=== PATIENT | female | born 1970 | race African-American/Black ===

== ENCOUNTER 2019-10-19 09:00 | Outpatient (CLI) | payer BC, SELFPAY ==
--- NOTE | ~2019-10-19 | MR_ITS ---
EXAMINATION: MR abdomen wo/w con DATE: 10/19/2019 10:06 INDICATION: Disease of pancreas. TECHNIQUE: Magnetic resonance imaging (MRI) of the abdomen was performed without and with 16 mL Multi Lexx intravenous contrast. Sequences included coronal T2-weighted FS FSE, coronal and axial FS FIEST A, axial T2-weighted FSE, coronal LAVA-flex, axial STIR FSE, axial DWI, axial dual-echo T1-weighted F SPGR, and axial LAVA. Postcontrast sequences included coronal LAVA-flex and a time course of axial LA VA. COMPARISON: CT abdomen and pelvis 04/06/2014, 05/27/2013 FINDINGS: There is moderate intrahepatic biliary duct dilatation. The common duct is dilated to 19 mm, worsened from 13 mm on 04/06/2014. There are changes of cholecystectomy. The pancreatic duct is mildly dilated to 5 mm, new from 04/06/2014. There is no pancreatic mass. The spleen, adrenal glands, and kidneys ar e normal. There are no dilated loops of bowel. There are no pathologically enlarged lymph nodes. Ther e is no free intraperitoneal fluid. IMPRESSION: 1. Worsened intrahepatic and extrahepatic biliary duct dilatation. Correlate with liver function test s to determine if this finding is clinically significant. 2. Mildly dilated pancreatic duct, most likely chronic pancreatitis. Reviewed, dictated and finalized at location A. IMPRESSION: 1. Worsened intrahepatic and extrahepatic biliary duct dilatation. Correlate wi th liver function tests to determine if this finding is clinically significant. 2. Mildly dilated pancreatic duct, most likely chronic pancreatitis.
[2019-10-19 09:37] LABS: Estimated Glomerular Filt Rate > 60
== END 2019-10-19 09:01 | disposition home or self-care (01) ==
PROVIDERS: Visit Provider Family Medicine
DX: K86.9 Disease of pancreas, unspecified (principal); K76.9 Liver disease, unspecified
CPT/HCPCS: 36415; 74183; A9577

== ENCOUNTER 2020-02-21 01:24 | Outpatient (CLI) | payer BC, SELFPAY ==
[2020-02-21 19:01] LABS: SARS-CoV-2 RNA PCR Negative
== END 2020-02-21 01:25 | disposition home or self-care (01) ==
LOC: ANHCOVIDDT 01:24
PROVIDERS: Visit Provider Internal Medicine Gastroenterology
DX: Z01.818 Encounter for other preprocedural examination (principal); Z11.59 Encounter for screening for other viral diseases
CPT/HCPCS: 87635; C9803; U0003

== ENCOUNTER 2020-02-23 03:42 | Day surgery (SDC) | payer BC, SELFPAY ==
[2020-02-15 14:01] VITALS: BMI 27.7
[2020-02-23 10:05] VITALS: BP 131/83; PULSE 78; RESP 18; TEMP 37; O2SAT 100; BMI 27.1
--- NOTE | 2020-02-23 10:09 | WPDANESEPPF ---
Anes - Initial Pre Proc Eval Procedure: Operation Date: 02/23/20 10:45 Proposed Procedures p Screening Colonoscopy - Quinten Mantilla MD Date/Time: 02/23/20 10:09 Surgeon: Quinten Mantilla MD Pre Op Diagnosis: neoplasm screen Patient Data Age: 49 Gender: F Height: 5 ft 9 in Weight: 83.5 kg Last Vital Signs Temp 37.0 C 02/23/20 10:05 Pulse 78 02/23/20 10:05 Resp 18 02/23/20 10:05 BP 131/83 02/23/20 10:05 Pulse Ox 100 02/23/20 10:05 Allergies Allergy/AdvReac Type Severity Reaction Status Date / Time cat dander Allergy Unknown Unknown Verified 02/23/20 10:01 pollen extracts Allergy Unknown Unknown Verified 02/23/20 10:01 NSAIDS (Non-Steroidal AdvReac Intermediate Unknown Verified 02/23/20 10:01 Anti-Inflamma Home Medications Medication Instructions Recorded Confirmed Type topiramate 50 mg tablet 50 mg PO BID #180 tablet 09/28/19 02/15/20 Rx butalbital 50 mg-acetaminophen 325 1 cap PO Q4H PRN #10 cap 10/10/19 02/15/20 Rx mg-caffeine 40 mg-codeine 30 mg cap rizatriptan 10 mg disintegrating 10 mg PO .COMPLEX PRN #30 tablet 10/25/19 02/15/20 Rx tablet syringe with needle 3 mL 25 gauge #5 each 11/20/19 Rx x 1 pregabalin 200 mg capsule 200 mg PO TID #90 cap 12/12/19 02/15/20 Rx duloxetine 60 mg capsule,delayed 60 mg PO DAILY 01/25/20 02/15/20 History release peg 3350-electrolytes 236 240 ml PO Q10M #4000 ml 02/13/20 Rx gram-22.74 gram-6.74 gram-5.86 gram solution buspirone 5 mg PO DAILY 02/15/20 02/15/20 History cyanocobalamin (vitamin B-12) 1,000 mcg IM MONTHLY 02/15/20 02/15/20 History eszopiclone 3 mg PO HS 02/15/20 02/15/20 History lorazepam 0.5 mg PO DAILY PRN 02/15/20 02/15/20 History sertraline 100 mg PO DAILY 02/15/20 02/15/20 History trazodone 50 mg PO HS PRN 02/15/20 02/15/20 History Patient hx anesthesia problems: none Family hx anesthesia problems: none PMFSH Past Medical History Medical History Anxiety Back pain Colon cancer screening Dilated bile duct Hiatal hernia Migraines Migraines Pancreatic lesion Plantar fasciitis Polyarthralgia Post herpetic neuralgia Primary insomnia Vaginal delivery x2 Surgical History Surgical History Gastric bypass status for obesity History of cholecystectomy History of gastric surgery Family History Family History Sibling Hypertension Father Family history of lung cancer Hypertension Mother Hypertension Family history of malignant melanoma Social History Social History Smoking status: Never smoker Second hand tobacco smoke exposure: No Alcohol intake: current Substance use: never Substance use type: does not use Additional occupation/education comments: Homemaker Gender identity (if verbalized by the patient): Female Spiritual care concerns: No Agree to blood products: Yes Anes - Eval Final PreProcedure Day of Procedure 02/23/20 10:09 Patient weight: overweight Heart: regular rate and rhythm Lungs: clear to auscultation Airway: Mallampati scale class II Neurological: alert and oriented Last oral intake: >/= 8 hours ASA classification: II Emergent: no Anesthetic plan: proceed Anesthesia type and monitoring: general GIVS and standard monitoring Informed Consent: The patient's anesthetic plan and its attendant risks and benefits were discussed with the patient/family/POA. Questions were solicited and answers provided to the satisfaction of the patient/family/POA.
[2020-02-23] MEDS: LACTATED RINGERS 1,000 ML 150 ML IV CONT (10:12)
--- NOTE | 2020-02-23 10:15 | SUR.PREOP ---
pt notified of approx 20 min delay in start time for procedure.
--- NOTE | 2020-02-23 11:25 | PM.HPGS ---
History of Present Illness History of Present Illness Consent: Risks, benefits, and alternatives have been discussed and questions answered. Patient agrees to proceed with procedure. Chief complaint: neoplasm screen Narrative: Shimon Mederos is a 49 year old female here for screening colonoscopy Review of Systems Constitutional: Constitutional: Denies headache(s) and Denies weakness Eyes: Eyes: Denies blurry vision ENT: Reports Normal hearing present, Denies headache(s) and Denies neck pain Cardiovascular: Cardiovascular: Denies chest pain and Denies dyspnea Respiratory: Respiratory: Denies dyspnea Gastrointestinal: Gastrointestinal: Reports no additional gastrointestinal complaints Genitourinary: Genitourinary: Denies dysuria Musculoskeletal: Musculoskeletal: Denies neck pain Integumentary/Breasts: Skin/Breast: Denies dry skin Neurologic: Reports Normal hearing present, Denies headache(s) and Denies weakness Psychiatric: Psychiatric: Denies anxiety Endocrine: Endocrine: Denies change in body appearance Hematologic/Lymphatic: Hematologic/Lymphatic: Denies easy bleeding Allergic/Immunologic: Allergic/Immunologic: Denies urticaria PMF Past Medical History Medical History Anxiety Back pain Colon cancer screening Dilated bile duct Hiatal hernia Migraines Migraines Pancreatic lesion Plantar fasciitis Polyarthralgia Post herpetic neuralgia Primary insomnia Vaginal delivery x2 Surgical History Surgical History Gastric bypass status for obesity History of cholecystectomy History of gastric surgery Family History Family History Sibling Hypertension Father Family history of lung cancer Hypertension Mother Hypertension Family history of malignant melanoma Social History Social History Smoking status: Never smoker Second hand tobacco smoke exposure: No Alcohol intake: current Substance use: never Substance use type: does not use Additional occupation/education comments: Homemaker Gender identity (if verbalized by the patient): Female Spiritual care concerns: No Agree to blood products: Yes Meds Home Medications and Allergies Home Medications Medication Instructions Recorded Confirmed Type topiramate 50 mg tablet 50 mg PO BID #180 tablet 09/28/19 02/15/20 Rx butalbital 50 mg-acetaminophen 325 1 cap PO Q4H PRN #10 cap 10/10/19 02/15/20 Rx mg-caffeine 40 mg-codeine 30 mg cap rizatriptan 10 mg disintegrating 10 mg PO .COMPLEX PRN #30 tablet 10/25/19 02/15/20 Rx tablet syringe with needle 3 mL 25 gauge #5 each 11/20/19 Rx x 1 pregabalin 200 mg capsule 200 mg PO TID #90 cap 12/12/19 02/15/20 Rx duloxetine 60 mg capsule,delayed 60 mg PO DAILY 01/25/20 02/15/20 History release peg 3350-electrolytes 236 240 ml PO Q10M #4000 ml 02/13/20 Rx gram-22.74 gram-6.74 gram-5.86 gram solution buspirone 5 mg PO DAILY 02/15/20 02/15/20 History cyanocobalamin (vitamin B-12) 1,000 mcg IM MONTHLY 02/15/20 02/15/20 History eszopiclone 3 mg PO HS 02/15/20 02/15/20 History lorazepam 0.5 mg PO DAILY PRN 02/15/20 02/15/20 History sertraline 100 mg PO DAILY 02/15/20 02/15/20 History trazodone 50 mg PO HS PRN 02/15/20 02/15/20 History Allergies Allergy/AdvReac Type Severity Reaction Status Date / Time cat dander Allergy Unknown Unknown Verified 02/23/20 10:01 pollen extracts Allergy Unknown Unknown Verified 02/23/20 10:01 NSAIDS (Non-Steroidal AdvReac Intermediate Unknown Verified 02/23/20 10:01 Anti-Inflamma Vital Signs Vital Signs - 24 hr 02/23/20 10:05 Temperature 98.6 F Pulse Rate 78 Respiratory Rate 18 Blood Pressure 131/83 Pulse Oximetry 100 Exam Const: General: comfortable and no acute distress HENMT: General nose
[2020-02-23 11:50] VITALS: BP 132/91; PULSE 66; RESP 16; O2SAT 99
[2020-02-23 12:00] VITALS: BP 136/90; PULSE 61; RESP 16; O2SAT 99
[2020-02-23 12:04] VITALS: BP 139/83; PULSE 63; RESP 16; O2SAT 100
== END 2020-02-23 12:14 | disposition home or self-care (01) ==
PROVIDERS: Visit Provider Internal Medicine Gastroenterology
PROC: 0DJD8ZZ Inspection of Lower Intestinal Tract, Via Natural or Artificial Opening Endoscopic (ICD-10-PCS; CPT 45378; principal; 2020-02-23 10:45)
DX: Z12.11 Encounter for screening for malignant neoplasm of colon (principal); D12.0 Benign neoplasm of cecum; K63.89 Other specified diseases of intestine; F41.9 Anxiety disorder, unspecified
CPT/HCPCS: 45380; 88305; J2001; J2704; J7120

== ENCOUNTER 2020-07-25 08:55 | Outpatient (CLI) | payer BC, SELFPAY ==
--- NOTE | ~2020-07-25 | MM_ITS ---
EXAMINATION: MM screening [facility] w rosy HISTORY: Screening mammogram TECHNIQUE: Craniocaudal and mediolateral oblique 3-D tomosynthesis images were obtained and synthetic 2-D images were generated. CAD analysis was submitted and interpreted. COMPARISON: 11/28/2015, 09/20/2014, 09/15/2013 bilateral digital screening mammogram examinations BREAST PARENCHYMAL COMPOSITION: The breasts are heterogeneously dense, which may obscure small masses . FINDINGS: There is no evidence of suspicious mass, calcification, or architectural distortion to sugg est malignancy in either breast. There has been no suspicious interval change. IMPRESSION: 1. No mammographic evidence of malignancy. 2. Recommend routine screening mammography in one year. BI-RADS Category 1: Negative Reviewed, dictated and finalized at location B. 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
== END 2020-07-25 08:56 | disposition home or self-care (01) ==
LOC: ANHIMG 08:56
PROVIDERS: Visit Provider Student in an Organized Health Care Education/Training Program
DX: Z12.31 Encounter for screening mammogram for malignant neoplasm of breast (principal)
CPT/HCPCS: 77063; 77067

== ENCOUNTER 2021-09-09 14:32 | Outpatient (CLI) | payer BC, SELFPAY ==
--- NOTE | ~2021-09-09 | XR_ITS ---
XR lumbar spine min 4V DATE: 09/09/2021 15:07 INDICATION: Radiculopathy. Left leg numbness. TECHNIQUE: AP, lateral, coned lateral lumbosacral and bilateral oblique views COMPARISON: None FINDINGS: No fracture or bone destruction. The included lower thoracic pedicles and lumbar pedicles are intact. No spondylosis or spondylolisthesis. The lumbar and lumbosacral interspaces are well preserved. The sacroiliac joints are intact. Status post cholecystectomy. IMPRESSION: No significant abnormality Status post cholecystectomy Reviewed, dictated and finalized at location B. ACER
== END 2021-09-09 14:33 | disposition home or self-care (01) ==
LOC: ANHIMG 14:41
PROVIDERS: PCP Family Medicine; Visit Provider Physician Assistant
DX: M54.10 Radiculopathy, site unspecified (principal); Z90.49 Acquired absence of other specified parts of digestive tract
CPT/HCPCS: 72110

== ENCOUNTER 2022-02-03 09:18 | Outpatient (CLI) | payer BC, SELFPAY ==
--- NOTE | ~2022-02-03 | MM_ITS ---
EXAMINATION: MM screening [facility] BI w rosy HISTORY: Screening TECHNIQUE: Craniocaudal and mediolateral oblique 3-D tomosynthesis images were obtained and synthetic 2-D images were generated. CAD analysis was submitted and interpreted. COMPARISON: Comparison to multiple prior studies sequentially, with oldest reviewed study dated 02/2014. BREAST PARENCHYMAL COMPOSITION: There are scattered areas of fibroglandular density. FINDINGS: There is no evidence of suspicious mass, calcification, or architectural distortion to sugg est malignancy in either breast. There has been no suspicious interval change. IMPRESSION: 1. No mammographic evidence of malignancy. 2. Recommend routine screening mammography in one year. BI-RADS Category 1: Negative Reviewed, dictated and finalized at location A.
== END 2022-02-03 09:19 | disposition home or self-care (01) ==
LOC: ANHIMG 09:20
PROVIDERS: PCP Family Medicine; Visit Provider Student in an Organized Health Care Education/Training Program
DX: Z12.31 Encounter for screening mammogram for malignant neoplasm of breast (principal)
CPT/HCPCS: 77063; 77067

== ENCOUNTER 2022-12-05 08:53 | Outpatient (CLI) | payer BC, SELFPAY ==
[2022-12-05 09:27] LABS: Basophils Percent Auto 0.9 % (0.2-1.2); Eosinophils Absolute Auto 0.1 K/mm3 (0-0.3); Eosinophils Percent Auto 2.2 % (0-4.4); Hematocrit 41.5 % (37.0-47.0); Hemoglobin 13.6 g/dL (12.0-15.0); Immature Granulocyte Absolute 0.01 K/mm3 (0.00-0.031); Immature Granulocyte Percent A 0.2 % (0-0.5); Lymphocytes Absolute Auto 2.11 K/mm3 (0.9-3.2); Lymphocytes Percent Auto 47.2 % (18.3-44.2); Mean Corpuscular HGB Conc 32.8 g/dl (32-36); Mean Corpuscular Hemoglobin 32.4 pg (26-34); Mean Corpuscular Volume 98.8 fl (80-100); Mean Platelet Volume 8.8 fl (7.4-10.4); Monocytes Absolute Auto 0.3 K/mm3 (0.1-0.6); Monocytes Percent Auto 6.7 % (2.6-8.5); Neutrophils Absolute Auto 1.9 K/mm3 (1.3-6.7); Neutrophils Percent Auto 42.8 % (45.5-73.1); Platelet Count Result 260 k/mm3 (150-375); Red Cell Distribution Width 12.1 % (11.5-14.5); White Blood Count 4.5 K/mm3 (4.5-10.0)
[2022-12-05 09:37] LABS: Alanine Aminotransferase 17 U/L (6-35); Albumin Level 3.9 g/dL (3.5-5.1); Alkaline Phosphatase 79 U/L (38-126); Anion Gap 2 mmol/L (8-16); Aspartate Amino Transferase 25 U/L (14-36); Bilirubin,Total 0.5 mg/dL (0.2-1.3); Blood Urea Nitrogen 16 mg/dL (7-17); Calcium 8.5 mg/dL (8.4-10.2); Carbon Dioxide 36 mmol/L (22-30); Chloride 101 mmol/L (98-107); Cholesterol 197 mg/dL (0-200); Estimated Glomerular Filt Rate > 60; Glucose 90 mg/dL (65-110); HDL Direct 79 mg/dL; Potassium 4.1 mmol/L (3.4-5.0); Sodium 139 mmol/L (137-145); Triglycerides 169 mg/dL (<150)
[2022-12-05 09:48] LABS: LDL Cholesterol Direct 80 mg/dL
[2022-12-05 10:35] LABS: Hemoglobin A1C 5.2 % (<5.7)
[2022-12-05 10:43] LABS: Folic Acid 8.1 ng/mL (2.76->20)
[2022-12-05 10:51] LABS: Vitamin D 25 Hydroxy 18.4 ng/mL
== END 2022-12-05 08:54 | disposition home or self-care (01) ==
LOC: ANHLAB 08:56
PROVIDERS: PCP Family Medicine; Visit Provider Nurse Practitioner Psychiatric/Mental Health
DX: R51.9 Headache, unspecified (principal); D51.9 Vitamin B12 deficiency anemia, unspecified; F51.01 Primary insomnia; F41.1 Generalized anxiety disorder; F33.1 Major depressive disorder, recurrent, moderate; Z79.899 Other long term (current) drug therapy
CPT/HCPCS: 36415; 80053; 80061; 82306; 82746; 83036; 84443; 85025

== ENCOUNTER 2023-04-19 09:17 | Outpatient (CLI) | payer BC, SELFPAY ==
[2023-04-19 10:21] LABS: Basophils Percent Auto 0.8 % (0.2-1.2); Eosinophils Absolute Auto 0.1 K/mm3 (0-0.3); Hematocrit 42.1 % (37.0-47.0); Hemoglobin 13.7 g/dL (12.0-15.0); Immature Granulocyte Absolute 0.01 K/mm3 (0.00-0.031); Immature Granulocyte Percent A 0.2 % (0-0.5); Lymphocytes Absolute Auto 2.02 K/mm3 (0.9-3.2); Lymphocytes Percent Auto 39.8 % (18.3-44.2); Mean Corpuscular HGB Conc 32.5 g/dl (32-36); Mean Corpuscular Hemoglobin 32.1 pg (26-34); Mean Corpuscular Volume 98.6 fl (80-100); Monocytes Absolute Auto 0.4 K/mm3 (0.1-0.6); Monocytes Percent Auto 7.9 % (2.6-8.5); Neutrophils Absolute Auto 2.5 K/mm3 (1.3-6.7); Neutrophils Percent Auto 49.3 % (45.5-73.1); Platelet Count Result 242 k/mm3 (150-375); Red Blood Count 4.27 M/mm3 (4.2-5.4); White Blood Count 5.1 K/mm3 (4.5-10.0)
[2023-04-19 10:43] LABS: Rheumatoid Factor < 12.0 IU/ML (<12)
[2023-04-19 11:30] LABS: Alanine Aminotransferase 23 U/L (6-35); Albumin Level 3.9 g/dL (3.5-5.1); Alkaline Phosphatase 103 U/L (38-126); Anion Gap 3 mmol/L (8-16); Aspartate Amino Transferase 28 U/L (14-36); Bilirubin,Total 0.6 mg/dL (0.2-1.3); Blood Urea Nitrogen 18 mg/dL (7-17); Calcium 8.5 mg/dL (8.4-10.2); Carbon Dioxide 32 mmol/L (22-30); Chloride 103 mmol/L (98-107); Estimated Glomerular Filt Rate > 60; Glucose 91 mg/dL (65-110); Potassium 4.2 mmol/L (3.4-5.0); Sodium 138 mmol/L (137-145)
[2023-04-19 15:33] LABS: Erythrocyte Sedimentation Rate 18 mm/hr (0-20)
[2023-04-21 22:11] LABS: Anti Cyclic Citrullinated Pept <16 Units (<20)
== END 2023-04-19 09:18 | disposition home or self-care (01) ==
LOC: ANHLAB 09:18
PROVIDERS: PCP Family Medicine; Visit Provider Physician Assistant Medical
DX: E78.2 Mixed hyperlipidemia (principal); M25.50 Pain in unspecified joint
CPT/HCPCS: 36415; 80053; 85025; 85652; 86038; 86200; 86430

== ENCOUNTER 2024-05-14 13:09 | Emergency (ER) | payer BC, SELFPAY ==
[2024-05-14 13:16] VITALS: BP 133/68; PULSE 65; RESP 14; TEMP 36.1; O2SAT 98
--- NOTE | 2024-05-14 15:26 | ED.BACK ---
HPI - Back Pain/Injury General Chief Complaint: Back Pain/Injury Stated Complaint: sciatica Time Seen by Provider: 05/14/24 15:22 Source: patient, RN notes reviewed and old records reviewed Mode of arrival: ambulatory Limitations: no limitations History of Present Illness HPI Narrative: This is a 53 year old female with history of chronic back pain with sciatica who presents for evaluation of exacerbation of left sciatica. She reports having exacerbation of her left sciatica for 1 week. She reports left buttock pain that radiates down to her ankle. She reports tingling feeling. She is taking tylenol without improvement. She denies urinary incontinence or bowel incontinence. She denies any new injury. Related Data Home Medications Medication Instructions Recorded Confirmed eszopiclone 3 mg tablet 3 mg PO HS 02/15/20 12/14/23 lorazepam 0.5 mg tablet 0.5 mg PO DAILY PRN Anxiety 02/15/20 12/14/23 sertraline 100 mg tablet 100 mg PO DAILY 02/15/20 12/14/23 buspirone 10 mg tablet 10 mg PO DAILY 12/26/20 12/14/23 trazodone 100 mg tablet 100 mg PO QHS PRN 12/26/20 12/14/23 Allergies Allergy/AdvReac Type Severity Reaction Status Date / Time cat dander Allergy Unknown Unknown Verified 05/14/24 15:29 pollen extracts Allergy Unknown Unknown Verified 05/14/24 15:29 NSAIDS (Non-Steroidal AdvReac Intermediate Unknown Verified 05/14/24 15:29 Anti-Inflamma Review of Systems Review of Systems: All systems reviewed & are unremarkable except as noted in HPI and below PMFSH Past Medical History Medical History Anxiety Back pain Colon cancer screening Dilated bile duct Hiatal hernia Migraines Migraines Pancreatic lesion Plantar fasciitis Polyarthralgia Post herpetic neuralgia Primary insomnia Vaginal delivery x2 Surgical History Surgical History History of cholecystectomy History of gastric surgery Family History Family History Sibling Hypertension Father Family history of lung cancer Hypertension Mother Hypertension Family history of malignant melanoma Social History Social History Smoking status: Never smoker Second hand tobacco smoke exposure: No Alcohol intake: current Alcohol use details: Social Substance use: never Substance use type: does not use Living arrangements: with family Occupation/Education: other Additional occupation/education comments: Homemaker Gender identity (if verbalized by the patient): Female Spiritual care concerns: No Agree to blood products: Yes Exam Const: General: no acute distress and alert Nutritional Appearance: well nourished Orientation/consciousness: patient oriented x3 Limitations: no limitations HENMT: Head: normal to inspection Eyes: EOM: EOMs intact bilaterally Skin: General skin exam: normal color Neuro: General: patient oriented x3, moves all extremities and CN's II-XI intact bilaterally Gait exam (Neuro): Normal gait present Extrem: General: normal to inspection Psych: Mental Status: mental status grossly normal Affect: normal affect Attitude: cooperative Course Reevaluation(s) Reevaluation #1: I Discussed with patient that symptoms do sound consistent with sciatica. No injury so no imaging at this time. I discussed treatment and discharge plan. Date: 05/14/24 Time: 15:34 Vital Signs Vital signs: Vital Signs Temperature 97 F L 05/14/24 13:16 Pulse Rate 65 05/14/24 13:16 Respiratory Rate 14 05/14/24 13:16 Blood Pressure 133/68 05/14/24 13:16 Pulse Oximetry 98 05/14/24 13:16 Temperature 97 F L 05/14/24 13:16 Pulse Rate 78 05/14/24 17:34 Respiratory Rate 16 05/14/24 17:34 Blood Pressure 128/84 05/14/24 17:34 Pulse Oximetry 98 05/14/24 17:34 Discharge
[2024-05-14] MEDS: methylPREDNISolone SOD SUCC 125 MG VIAL IM (15:30)
[2024-05-14] MEDS: oxyCODONE/ACETAMINOPHEN (*CRX) 5-325 MG TABLET 1 TABLET PO (15:30)
[2024-05-14] MEDS: ONDANSETRON HCL ODT 4 MG TABLET PO (15:30)
[2024-05-14 17:34] VITALS: BP 128/84; PULSE 78; RESP 16; O2SAT 98
== END 2024-05-14 16:05 | disposition home or self-care (01) ==
PROVIDERS: Emergency Provider General Practice; PCP Family Medicine
DX: M54.32 Sciatica, left side (principal); F41.9 Anxiety disorder, unspecified
CPT/HCPCS: 96372; 99283; A9270; J2919

== ENCOUNTER 2024-06-01 14:01 | Outpatient (CLI) | payer BC, SELFPAY ==
--- NOTE | ~2024-06-01 | XR_ITS ---
3 VIEWS LUMBAR SPINE Ordering provider: Allison Mae PA-C History: . M54.50 - Low back pain, unspecified . Comparison: September 09, 2021 FINDINGS: VERTEBRAL BODIES: No visible fracture or subluxation. Degenerative changes of the spine. DISK SPACES: Normal. Multilevel Facet Joint Disease. SOFT TISSUES: Normal. Fecal material seen in the right and left suggestive of constipation. IMPRESSION: No acute osseous abnormality lumbar spine. Reviewed, dictated and finalized at location A.
== END 2024-06-01 14:02 | disposition home or self-care (01) ==
PROVIDERS: PCP Family Medicine; Visit Provider Student in an Organized Health Care Education/Training Program
DX: M54.50 Low back pain, unspecified (principal)
CPT/HCPCS: 72100

== ENCOUNTER 2024-07-31 12:30 | Outpatient (RCR) | payer BC, SELFPAY ==
--- NOTE | 2024-06-26 16:22 | OPREHPOC ---
Outpatient Therapy Plan of Care This is a Multidisciplinary Plan of Care that may contain components documented by all disciplines (PT, OT, and ST.) PT Problem 1 PT Problem #1 Knowledge Deficit PT Goal 1 Goal / Goal Update *indep with HEP * correct body mechanics with lifting from the floor Target Visit 8 PT Problem 2 PT Problem #2 Pain PT Goal 1 Goal / Goal Update 1* pt report pain rating at worst of 7/10 2* radicular pain into L LE to knee at worst 3* Oswestry self rating of 42% limitation in activity level 4* pt report with sleeping, awaken 1x/night due to pain Target Visit 8 PT Problem 3 PT Problem #3 Impaired Flexibility PT Goal 1 Goal / Goal Update increase flexibility of L hip, to improve position and decrease imbalance of hip 1* supine SLR 60' 2* supine piriformis stretch to midline of body 3* prone knee flexion 120'/ anterior hip-quad length Target Visit 8 PT Problem 4 PT Problem #4 Impaired Strength PT Goal 1 Goal / Goal Update 1* improve trunk and hip stability to stabilize sacrum and spine: pt perform 20 reps of mat and standing exercises with good stability Target Visit 8
--- NOTE | 2024-06-26 16:22 | PTOPEVAL1 ---
Assessment and note entered by Marina Masters, PT Evaluation Information Assessment Status Evaluation ICD-10 Condition Codes (PT) Pain in low back M54.50,M54.16 Onset May 2024 Subjective Information chronic issues with back pain, increased and went to ER in May; this time back pain is more than she has had in the past; had predisone- completed and not really help; currently taking tramadol 2x/day; xray: lumbar degenerative changes; have had PT in the past at another facility- helped some; have had shots in her back in past- helped about 1 week. 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; Now- not able to walk the dogs and have to take breaks with activity due to pain Reported Pain Level Pain Score Self Report Additional Pain Score Comments pain range in the past week 5-10/10; constant dull pain L low back; radicular intermittent to toes tingle 3x in past week; constant to L knee increase pain: bending forward, lie on L side, twist back; walking 10 minutes decrease pain: sit in reclined position with legs elevated and pillow behind back; not using any heat or ice over back - instruct on PRN use; with sleeping, awaken 2x/night due to pain, does take sleeping meds Assessment PT Clinical Summary Shimon has the diagnosis of radicular lumbar pain. Radicular pain is into L LE to knee constantly and intermittent into foot. Her history includes chronic back pain with back injections in the past Self assessment Oswestry rating of 54% limitation in activity level. 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 Lumbar xray report states degenerative changes of spine. She has an appointment with pain management in August. With the evaluation: L LE is decreased flexibility over hamstring, piriformis and anterior hip/quad due to back pain; decreased strength of trunk and hips; standing bilateral ankle PF increases L lateral knee pain; pain is eased with pressure over R sacrum in prone and prone on elbows. Skilled PT services are indicated for modalities to decrease pain; therapeutic exercises to increase L hip flexibility and strength with education for home exercises, body mechanics and pain control. Plan of Care Interventions Electrical Stimulation,Hot Pack/Cold Pack,Manual Therapy,Mechanical Traction,Neuro Re-education, Patient Education,Therapeutic Activities, Therapeutic Exercise,Ultrasound,Other Other Interventions taping PT Services Indicated Yes Treatment Frequency and 1-2x/wk for 8 visits Duration These treatments will address the objective and functional deficits as defined above. The patient will be advanced safely and appropriately in order for the patient to progress towards his/her prior level of function. Additional exercises will be introduced and as well as a comprehensive home exercise program upon discharge, if needed, ?to ensure carryover of functional gains achieved in the clinic. This treatment plan has been reviewed and agreement upon by the patient.
--- NOTE | 2024-07-31 13:23 | OPREHPOC ---
Outpatient Therapy Plan of Care This is a Multidisciplinary Plan of Care that may contain components documented by all disciplines (PT, OT, and ST.) PT Problem 1 PT Problem #1 Knowledge Deficit PT Goal 1 Goal / Goal Update *indep with HEP * correct body mechanics with lifting from the floor 07-31-24 progress goals met continue towards goals to progress education Target Visit 14 PT Problem 2 PT Problem #2 Pain PT Goal 1 Goal / Goal Update 1* pt report pain rating at worst of 7/10 2* radicular pain into L LE to knee at worst 3* Oswestry self rating of 42% limitation in activity level 4* pt report with sleeping, awaken 1x/night due to pain 07-31-24 progress all goals met NEW GOALS: 1* pain rating of 4/10 at worst 2* radicular pain to knee at worst 3* self assessment Oswestry rating of 30% limitation in activity level Target Visit 14 PT Problem 3 PT Problem #3 Impaired Flexibility PT Goal 1 Goal / Goal Update increase flexibility of L hip, to improve position and decrease imbalance of hip 1* supine SLR 60' 2* supine piriformis stretch to midline of body 3* prone knee flexion 120'/ anterior hip-quad length 07-31-24 progress goals not met; improved with #1 to 55' and #3 to 115' continue towards goals Target Visit 14 PT Problem 4 PT Problem #4 Impaired Strength PT Goal 1 Goal / Goal Update 1* improve trunk and hip stability to stabilize sacrum and spine: pt perform 20 reps of mat and standing exercises with good stability 07-31-24 progress goal partially met continue towards goal Target Visit 14
--- NOTE | 2024-07-31 13:23 | PTOPPROG ---
Assessment and note entered by Marina Masters, PT Assessment Status Progress ICD-10 Condition Codes (PT) Pain in low back M54.50,Radiculopathy, lumbar region M54.16 Onset May 2024 Subjective Information have improved since coming for therapy, pain is less during the day, but continues to have pain at end of day; have been doing the exercises at home; to have MRI Aug 14; have pain management appt at end of Aug; Assessment PT Clinical Summary Shimon has received 6 PT sessions. Compared to the initial evaluation: pain from 5- 10/10 to 2-7/10; radicular pain L LE: constant to knee and intermittent to foot and now-- intermittent to knee daily and into foot 1x/wk; self assessment Oswestry rating 54 to 40% limitation in activity level; reported sleeping from awaken 2x to 1x/night due to pain; increase flexibility of L hamstring and anterior hip/quad length; increase strength of trunk and hips; improved awareness of posture and pain management techniques; education for HEP. The goals were partially met. Continue treatment. Plan of Care Interventions Electrical Stimulation,Hot Pack/Cold Pack,Manual Therapy,Mechanical Traction,Neuro Re-education, Patient/Caregiver Education,Therapeutic Activities ,Therapeutic Exercise,Ultrasound,Other Other Interventions taping PT Services Indicated Yes Treatment Frequency and 1-2x/wk for 8 visits Duration These treatments will address the objective and functional deficits as defined above. The patient will be advanced safely and appropriately in order for the patient to progress towards his/her prior level of function. Additional exercises will be introduced and as well as a comprehensive home exercise program upon discharge, if needed, ?to ensure carryover of functional gains achieved in the clinic. This treatment plan has been reviewed and agreement upon by the patient.
--- NOTE | 2024-08-07 13:37 | PCPTNOTE ---
Pt canceled today due to family .
--- NOTE | 2024-08-11 10:53 | PCPTNOTE ---
No call no show, reason unknown. AKKam
--- NOTE | 2024-08-11 11:00 | PCPTNOTE ---
Called and spoke with pt she is cancelling remaining appt at this time. [place] is out of the country due to a in the family. She is to call should she need our services. GUSTAVO
--- NOTE | 2024-08-17 11:07 | PTOPDC ---
Assessment and note entered by Marina Masters, PT Assessment Status Discharge - Pt Not Present ICD-10 Condition Codes (PT) Pain in low back M54.50,Radiculopathy, lumbar region M54.16 Onset May 2024 Subjective Information pt called August 11 and canceled all of the PT appointments due to going out of the country due to a . Assessment PT Clinical Summary Shimon has received 6 PT sessions, then called and canceled due to going out of the country. Refer to progress report dated on the last session 07-31-24, for her status. Discharge PT. The goals were not addressed. Plan of Care PT Services Indicated No
== END 2024-08-17 17:50 | disposition home or self-care (01) ==
LOC: ANHPT 12:30
PROVIDERS: PCP Family Medicine; Visit Provider Student in an Organized Health Care Education/Training Program
DX: M54.10 Radiculopathy, site unspecified (principal); M47.817 Spondylosis without myelopathy or radiculopathy, lumbosacral region; R29.898 Other symptoms and signs involving the musculoskeletal system; M54.50 Low back pain, unspecified
CPT/HCPCS: 97012; 97110; 97140; 97161; 97530

== ENCOUNTER 2024-09-14 08:17 | Outpatient (CLI) | payer BC, SELFPAY ==
--- NOTE | ~2024-09-14 | MR_ITS ---
EXAMINATION: MR lumbar spine wo con DATE: 09/14/2024 08:51 INDICATION: Low back pain TECHNIQUE: Magnetic resonance imaging (MRI) of the lumbar spine was performed without intravenous con trast. Sequences included sagittal T2-weighted FSE, sagittal T2-weighted FS FSE, sagittal T1-weighted FSE, and axial T2-weighted FSE. COMPARISON: None FINDINGS: Alignment is normal. Vertebral body heights are normal. Normal bone marrow signal. Mild disc desiccat ion and mild disc height loss at L3-L4. Remaining discs are normal. The conus medullaris terminates at L2. There is normal signal in the caudal spinal cord. Paravertebral soft tissues are unremarkable. The following disc levels are specifically discussed: T12-L1: The disc does not extend beyond the endplate margin. There is mild bilateral facet joint oste oarthritis. There is no neural foraminal stenosis. There is no central canal stenosis. L1-L2: The disc does not extend beyond the endplate margin. There is severe bilateral facet joint ost eoarthritis. There is minimal left and mild right neural foraminal stenosis. There is no central cathleen l stenosis. L2-L3: The disc does not extend beyond the endplate margin. There is moderate bilateral facet joint o steoarthritis. There is minimal bilateral neural foraminal stenosis. There is no central canal stenos is. L3-L4: Disc is bulging. There is mild left and moderate right facet joint osteoarthritis. There is mi ld bilateral neural foraminal stenosis. There is mild central canal stenosis. L4-L5: Disc is mildly bulging. There is moderate bilateral facet joint osteoarthritis. There is mild right and minimal left neural foraminal stenosis. There is no central canal stenosis. L5-S1: The disc does not extend beyond the endplate margin. There is moderate left and severe right f acet joint osteoarthritis. There is minimal right neural foraminal stenosis. There is no central cathleen l stenosis. IMPRESSION: 1. Mild lumbar spondylosis. Reviewed, dictated and finalized at location A. [employer] IMPRESSION: 1. Mild lumbar spondylosis.
== END 2024-09-14 08:18 | disposition home or self-care (01) ==
PROVIDERS: PCP Family Medicine; Visit Provider Family Medicine
DX: M47.896 Other spondylosis, lumbar region (principal)
CPT/HCPCS: 72148

== ENCOUNTER 2024-10-06 12:04 | Outpatient (CLI) | payer BC, SELFPAY | END 2024-10-06 12:05 | disposition home or self-care (01) | PROVIDERS: PCP Family Medicine; Visit Provider Anesthesiology Pain Medicine | DX: M46.1 Sacroiliitis, not elsewhere classified (principal); M25.552 Pain in left hip; M47.817 Spondylosis without myelopathy or radiculopathy, lumbosacral region; M54.50 Low back pain, unspecified | CPT/HCPCS: 72114; 72202; 73521 ==

== ENCOUNTER 2024-12-04 14:27 | Outpatient (CLI) | payer BC, SELFPAY ==
--- NOTE | ~2024-12-04 | XR_ITS ---
EXAMINATION: XR fl inj hip LT for MR/CT DATE: 12/04/2024 15:36 INDICATION: Left hip pain TECHNIQUE: A time-out was performed to verify the patient's name, date of , and procedure to b e performed. The procedure including the risks and benefits was discussed with the patient. Risks dis cussed included bleeding, nontargeted injection and infection. The patient understood the risks and agreed to proceed. The skin overlying the left hip joint was prepped and draped in usual sterile fashion. Anesthetic wa s administered with 1% lidocaine subcutaneously. A 22 G needle was advanced under fluoroscopic guidance into the joint. Injection of [0.5 mL of dilute Omnipaque 240 was performed to verify intra-articular position of the needle. Intra-articular needle position was confirmed.] Subsequently, injectate consisting of 10 mL of 1:200 0.1 mmol/kg Multihance, 1:4 1% lidocaine, and 1: 4 Omnipaque 240 was instilled. The needle was removed and the entry site was cleaned and dressed. T here were no immediate complications. Fluoroscopy exposure time was 2.4 minutes. DOSE AREA PRODUCT: 7.2 Gy-cm2 2 images were obtained, FINDINGS: Real-time fluoroscopy demonstrates the needle and contrast in the left femoral acetabular j oint. IMPRESSION: 1. Technically successful left hip joint injection of lidocaine and contrast for MR arthrogram. Reviewed, dictated and finalized at location [] IMPRESSION: 1. Technically successful left hip joint injection of lidocaine and contrast fo r MR arthrogram.
--- NOTE | ~2024-12-04 | MR_ITS ---
EXAMINATION: MR hip LT w con DATE: 12/04/2024 16:15 INDICATION: Left hip pain TECHNIQUE: Magnetic resonance imaging (MRI) of the left hip was performed with intra-articular contr ast but without intravenous contrast. Details of the joint injection have been dictated separately. S equences included full-field of the pelvis axial T2-weighted FS FSE and T1-weighted FSE and coronal P D-weighted FS FSE, small field of view of the left hip with axial and coronal T2-weighted FS FSE and T1-weighted FS FSE and sagittal T2-weighted FS FSE. Additional radial T1-weighted FGR oriented ortho gonal to the acetabular rim were obtained for evaluation of the labrum. COMPARISON: Radiographs dated 10/06/2024 FINDINGS: Bones/labrum/cartilage: Alignment is normal. No fracture, avascular necrosis or pathologic marrow replacing process. Mild jordy mbar spondylosis with severe facet osteoarthritis on the right at L5-S1 and moderate facet osteoarthr itis on the left at L5-S1 and bilaterally at L3-L4 and L4-L5. There is mild osteoarthritis at the lef t hip with nonuniform partial-thickness cartilage loss with smooth appearing chondral surface and wit hout degenerative subchondral changes. There is degenerative tearing of the anterior to superolateral left acetabular labrum with minimal residual frayed tissue along the rim of the acetabulum. Fluid: Physiologic amount of fluid at the right hip joint space. Injected contrast in the left hip joint. No bursitis, free fluid in the pelvis or other abnormal fluid collections. Soft tissues: Normal and symmetric muscle bulk and signal in the pelvis and visualized proximal thighs. The iliopso as, gluteal and proximal hamstring tendons are normal. Limited evaluation of visceral organs of the p david is unremarkable. No pathologically enlarged pelvic/inguinal lymphadenopathy. IMPRESSION: 1. Mild osteoarthritis the left hip with prominent degenerative tearing of the anterior to superolate ral left acetabular labrum. 2. Mild lumbar spondylosis with moderate to severe lower lumbar facet osteoarthritis. Reviewed, dictated and finalized at location B. IMPRESSION: 1. Mild osteoarthritis the left hip with prominent degenerative tearing of the anterior to superolateral left acetabular labrum. 2. Mild lumbar spondylosis with moderate to severe lower lumbar facet osteoarth ritis.
--- OUTSIDE RECORDS SUMMARY | 2024-12-04 16:37 | XMS_ITS | Patient Health Record ---
Author Organization [facility] Address [address] [facility] [address] [place] [address] Care Team Providers Care Sleever Name Role Phone Lakisha Banks MD Primary Care Provider Emelina Weldon Unavailable [phone] Migration, Provider Unavailable Unavailable Allergies Allergen (clinical drug ingredient) Drug/Non Drug Allergy documented on EMR Reaction Allergy Type Onset Date Status Non-steroidal anti-inflammatory agent (FN) NSAIDS (NON-STEROIDAL ANTI-INFLAMMATORY DRUG) (uncoded) Unknown Allergy 12/13/2023 Active Results Component Value Reference Range Notes Benzodiazepines Reviewed date:09/29/2024 05:02:12 PM Interpretation: Performing Lab:[address] [place] [address], Director - [id number] Notes/Report: An exception occurred while processing this report and so it has incomplete data. Please contact [employer] for assistance. Not Medicated Consistent Not Medicated Consistent Not Medicated Consistent Not Medicated Consistent Not Medicated Consistent Medicated Inconsistent Not Medicated Consistent Not Medicated Consistent Not Medicated Consistent Not Medicated Consistent 7-Aminoclonazepam NEGATIVE 20.0 ng/mL Temazepam NEGATIVE 40.0 ng/mL Oxazepam NEGATIVE 40.0 ng/mL Midazolam NEGATIVE 40.0 ng/mL Lorazepam NEGATIVE 40.0 ng/mL Nordiazepam NEGATIVE 40.0 ng/mL Diazepam NEGATIVE 40.0 ng/mL Clonazepam NEGATIVE 20.0 ng/mL Hydroxyalprazolam NEGATIVE 20.0 ng/mL Alprazolam NEGATIVE 20.0 ng/mL PDF Report [email or web address] C _ORU UDT Reviewed date:09/19/2024 11:54:04 AM Interpretation: Performing Lab: Notes/Report: Cocaine neg 0 - 300 ng/ml Amphetamine neg 0 - 1000 ng/ml Buprenorphine (BUP) neg 0 - 10 ng/ml Secobarbital (Bar) neg 0 - 300 ng/ml Oxazepam (BZO) neg 0 - 300 ng/ml 5-aqxyevxvuz-8,6-npzaruig-1, 3-diphenylpyrr olidine (EDDP) neg 0 - 300 ng/ml Methamphetamine (MET) neg 0 - 1000 ng/ml Methylenedioxymethamphetamine (MDMA) neg 0 - 500 ng/ml Morphine (MOP 300/HCR5642) neg 0 - 300 ng/ml Methadone (MTD) neg 0 - 300 ng/ml Phencyclidine (PCP) neg 0 - 25 ng/ml Nortriptyline (TCA) neg 0 - 1000 ng/ml Oxycodone neg 0 - 300 ng/ml x neg 0 - 300 ng/ml UDT Reviewed date:04/28/2024 11:20:44 AM Interpretation: Performing Lab: Notes/Report: THC NEG 0 - 50 ng/ml Cocaine NEG 0 - 300 ng/ml Amphetamine NEG 0 - 1000 ng/ml Buprenorphine (BUP) NEG 0 - 10 ng/ml Secobarbital (Bar) NEG 0 - 300 ng/ml Oxazepam (BZO) NEG 0 - 300 ng/ml 8-wqxqbftkcn-9,9-wwrxosed-9, 3-diphenylpyrr olidine (EDDP) NEG 0 - 300 ng/ml Methamphetamine (MET) NEG 0 - 1000 ng/ml Methylenedioxymethamphetamine (MDMA) NEG 0 - 500 ng/ml Morphine (MOP 300/ESN8454) NEG 0 - 300 ng/ml Methadone (MTD) NEG 0 - 300 ng/ml Phencyclidine (PCP) NEG 0 - 25 ng/ml Nortriptyline (TCA) NEG 0 - 1000 ng/ml Oxycodone NEG 0 - 300 ng/ml x NEG 0 - 300 ng/ml Reason For Referral No Information Medications Medication SIG (Take, Route, Frequency, Duration) Notes Start Date End Date Status Rizatriptan Benzoate 10 MG Oral 12/13/2023 Active Estradiol 0.1 MG/24HR Transdermal 12/13/2023 Active Estradiol 0.075 mg/24 hr Transdermal 12/13/2023 Not-Taking LUER-EDGAR SYRINGE-NEEDLE 3 mL 25 gauge x 1 MISCELLANEOUS *Reorder from [employer] for eRx and Interaction Alerts* 12/13/2023 Active Cyanocobalamin 1000 MCG/ML Injection 12/13/2023 Active traZODone HCl 100 MG 1 tablet Oral bedtime for 30 days appointment needed Active Progesterone Micronized 100 MG Oral 12/13/2023 Active DULoxetine HCl 30 MG 1 capsule Orally Once a day for 30 day(s) Active Eszopiclone 3 MG TAKE 1 TABLET BY MOUTH IMMEDIATELY BEFORE BEDTIME FOR 30 DAYS for 30 11/21/2024 Active lamoTRIgine 25 MG TAKE 2 TABLETS BY MOUTH AT BEDTIME for 90 days Active Topiramate 50 MG Oral 12/13/2023 Ac tive LORazepam 0.5 MG 1 tablet Oral Once a day for 30 days 09/19/2024 Active PREGABALIN 200 MG CAPSULE *Reorder from [employer]porter for eRx and Interaction Alerts* 12/13/2023 Active DULoxetine HCl 60 MG Oral 12/13/2023 Not-Taking traZODone HCl 100 MG 1 tablet Oral bedtime for 90 days Active FLUCELVAX QUAD 60 MCG (15 MCG X 4)/0.5 ML INTRAMUSCULAR SUSP *Reorder from [employer] for eRx and Interaction Alerts* 12/13/2023 Not-Taking Sertraline HCl 100 MG 1 tablet Oral Once a day for 90 days Active Immunizations Vaccine Route Administration Date Status Comme nts Influenza virus vaccine, quadrivalent (IIV4), split virus, 0.25 mL dosage Unknown 05/09/2019 Administered Influenza virus vaccine, quadrivalent (IIV4), split virus, 0.25 mL dosage Unknown 03/23/2020 Administered Influenza, injectable, MDCK, preservative free Unknown 05/23/2018 Administered Influenza, injectable, MDCK, preservative free Unknown 06/13/2019 Administered Influenza, unspecified formulation Unknown 06/19/2023 A dministered Novel [id number]-Y0G7-66, preservative free Unknown 05/01/2021 Administered Novel Jpllydgia-S1G9-45, preservative free Unknown 06/21/2022 Administered Pfizer BioSmartKem Covid-19 Vac cine 2nd dose Unknown 10/22/2020 Administered Pfizer Biontech Covid-19 Vac cine 2nd dose Unknown 11/12/2020 Administered Pfizer Biontech Covid-19 Vac cine 2nd dose Unknown 06/07/2021 Administered Pfizer Biontech Covid-19 Vac cine 2nd dose Unknown 06/21/2022 Administered Pfizer Biontech Covid-19 Vac cine 2nd dose Unknown 06/19/2023 Administered Td (adult) preservative free Unknown 08/19/2011 Adminis tered Tdap Unknown 08/09/2014 Administered Tdap Unknown 03/23/2020 Administered Social History Tobacco Use: Social History Observation Description Date Details (start date - stop date) Never Smoker NA - NA Sex Assigned At : Social History Observation Description Sex Assigned At Female Household Question Answer Notes Marital status: Number of adults in household: 3 Number of children in household: 2 daughter and son Level of education: finished college 4 year Sexual History Question Answer Notes Had sex in the past 12 months (vaginal, oral, or anal)? Yes with Men only Tobacco Control (Standard) Question Answer Notes Tobacco use: Nonsmoker Additional Findings: Tobacco non-user Current no nsmoker AUDIT-C (Standard) Question Answer Notes Did you have a drink containing alcohol in the p ast year? No Points 0 Interpretation Negative Problems Problem Type SNOMED Code ICD Code Onset Dates Problem Status W/U Status Risk Notes Problem Mild recurrent major depression (74886167) Major depressive disorder, recurrent, mild (F33.0) 4 Active confirmed Problem Generalized anxiety disorder (70222086) Generalized anxiety disorder (F41.1) 4 Active confirmed Problem Insomnia disorder related to another mental disorder (76593080) Insomnia due to other mental disorder (F51.05) 4 Active confirmed Problem Long-term current use of drug therapy (680199720) Other [facility] (current) drug therapy (Z79.899) 4 Active confirmed Vital Signs Heart Rate 94 /min 09/19/2024 Height-cm 175.26 cm 09/19/2024 Blood pressure diastolic 78 mm Hg 09/19/2024 Weight-kg 75.3 kg 09/19/2024 Height 69.00 in 09/19/2024 Blood pressure systolic 117 mm Hg 09/19/2024 Weight 166 lbs 09/19/2024 BMI 24.51 kg/m2 09/19/2024 Encounters [facility]counter [facility] [address] [facility] [address] [place] [address] 12/13/2023 Emelina Therfestus Major depressive disorder, recurrent, moderate F33.1 ; Generalized anxiety disorder F41.1 ; Insomnia due to other mental disorder F51.05 ; Headache, unspecified R51.9 ; Other m[facility] (current) drug therapy Z79.899 ; Vitamin B12 deficiency anemia, unspecified D51.9 ; Primary insomnia F51.01 and Abnormal weight gain R63.5 [place] [id number] [facility] [address] [address] 04/28/2024 Emelina Ma Major depressive disorder, recurrent, mild F33.0 ; Generalized anxiety disorder F41.1 ; Insomnia due to other mental disorder F51.05 and Other predatory animal exterminator (current) drug therapy Z79.[address] [address] 09/19/2024 Emelina Ma Major depressive disorder, recurrent, mild F33.0 ; Generalized anxiety disorder F41.1 ; Insomnia due to other mental disorder F51.05 and Other mcc (current) drug therapy Z79.[address] [address] 12/25/2023 Provider Migration [address] [address] 12/26/2023 Provider Migration [address] [address] 04/26/2024 Emelina Ma [address] [address] 11/21/2024 Emelina Ma Assessments Encounter Date Diagnosis (ICD Code) Assessment Notes Treatment Notes Treatment Clinical Notes Section Notes 12/13/2023 Vitamin B12 deficiency anemia, unspecified (ICD-10 - D51.9) 12/13/2023 Major depressive disorder, recurrent, moderate (ICD-10 - F33.1) 12/13/2023 Generalized anxiety disorder (ICD-10 - F41.1) 12/13/2023 Primary insomnia (ICD-10 - F51.01) 12/13/2023 Insomnia due to other mental disorder (ICD-10 - F51.05) 12/13/2023 Abnormal weight gain (ICD-10 - R63.5) 12/13/2023 Other predatory animal exterminator (current) drug therapy (ICD-10 - Z79.899) 12/13/2023 Headache, unspecified (ICD-10 - R51.9) 04/28/2024 Major depressive disorder, recurrent, mild (ICD-10 - F33.0) Preventing Depression From Coming Back: Care Instructions material was published, Learning About Depression material was published, Learning About Depression Screening material was published, Learning About How to Get Help During a Mental Health Crisis material was published, Depression Treatment: Care Instructions material was published presently taking Trazodone 100 mg bedtime, Cymbalta 30 mg daily, Lorazepam 0.5 mg daily, Sertraline 100 mg daily, Lamotrigine 50 mg daily, Buspar 10 mg three times a day, Lunesta 3 mg bedtime Depression- Cymbalta 30 mg daily Sertraline 100 mg daily, Lamotrigine 50 mg daily Anxiety- Buspar 10 mg three times a day Lorazepam 0.5 mg daily, UDS today and random Control substance agreement signed Insomnia- Trazodone 100 mg bedtime Lunesta 3 mg bedtime educated on healthy b/p 120/80 monitor b/p at home refer to PCP, on no b/p rx heart healthy diet and excise limit salt intake and caffeine Recommend decrease/stop cannabis use as it can negatively impact mood, motivation, anxiety, sleep, focus/concentration /memory (vigilance, elasticity, processing and attention); can also contribute to development of psychosis. Cannabis/marijuana information: http_s://colin.nih.g ov/publications/ivana gfacts/cannabis-mar ijuana http_s://www.COM DEV.Nearway/cannabis- iux-bziwijhp-brgejp rory-adhd/ http_s://www.monserrat.o rg/Jzxsm-Gkqugc-Prn ness/Mental-Health- Conditions http_s://psychcentr al.com/depression/t ps-bcothmiir-ydwdlv cq-aq-jiagldsiud#tr eatments http__s://www.nimh. nih.gov/health/topi cs/haevvo-unghsu-ef dications http__s://www.monserrat. org/Lpzcy-Lgjxbr-Tl lness/Treatments/Nm xzaa-Xtzfkq-Bytwbrb ions educated on all medications, benefits, side effects and risk, and educated on depression, anxiety, and ADHD, mood d/o and educated on compliance of medications, metabolic and movement d/o education appointment's, continue therapy discussion with patient about course of treatment and patient instructions. education on serotonin syndrome Discussed and educated pt regarding benzodiazepines are generally not intended for prolonged use and that use can cause tolerance, dependence, depression, and associated memory issues including dementias (this list is not exhaustive). Benzodiazepine use is generally not recommended concurrently with pain medications and/or other controlled substances educated on all medications, benefits, side effects and risk, and educated on depression, anxiety, and ADHD, mood d/o and educated on compliance of medications, metabolic and movement d/o education appointment is, continue therapy discussion with patient about course of treatment and patient instructions. education on serotonin syndrome SSRI/SNRI side effects discussed including but not limited to, gastric upset, nausea, vomiting, diarrhea and/or constipation, weight changes, sexual side effects including loss of libido, increased suicidal thoughts/behaviors in children and young adults, and serotonin syndrome. Lamotrigine lamotrigine has a serious rashes requiring hospitalization and discontinue treatment including Edmund John syndrome rare case of toxic epidermal necrolysis and cache related deaths. Incidence with adjunct of epilepsy treatment 0.8% in 2 to 16 years old and 0.3% in adults, bipolar and other mood disorders incidence 0.8% this initial monotherapy and 0.13% as adjunctive treatment. Other risk factor may include concomitant use of valproate acid derivative or exceeding initial lamotrigine does or does as clinician recommendation; most life-threatening rash of occurring first 2 to 8 week of treatment with isolated cases after prolonged treatment; though benign may occur, discontinue treatment at first sign of rash unless clearly not a drug related; TC treatment may not prevent trash from becoming life-threatening or permanently disabling or disfiguring. Comment reaction include, nausea/vomiting, dizziness/vertigo, visual disturbances, somnolence, ataxia, pruritus/rash, pharyngitis, headache, rhinitis, diarrhea, fever, asthenia, insomnia, tremor, abdominal pain, cough, accidental injury, constipation, dysmenorrhea, incoordination, anxiety, seizures, irritability, anorexia, xerostomia, and photosensitivity. Serious reactions include: Rash, severe; Quijano John syndrome; toxic epidermal necrosis; injury edema, hypersensitivity reactions. Including fatal, multiple organ failure to safe fatal, rash with eosinophilia systemic symptoms, DIC, neutropenia, leukopenia, thrombocytopenia, pancytopenia, aplastic anemia, hemolytic anemia, i pancreatitis, hepatic failure, rhabdomyolysis, worsening of suicidal ideation, worsening of depression, cleft lip/palate [first trimester use] DO not Change Cosmetic, perfumes or soap for next 4 weeks. The patient was advice to take lamotrigine as prescribed the patient was instructed not to deviate from the prescription dosages. Stop lamotrigine is the first sign of rash. Patient was insisted to inform office if any of the serious side effect develops. Medication Management and Follow-Up - Plan: - Schedule follow-up appointments every 1-3 months to monitor the patient's response to the medication regimen. - Reinforce the importance of avoiding recreational drug use due to potential neurotoxicity and interactions with prescribed medications. 04/28/2024 Generalized anxiety disorder (ICD-10 - F41.1) Learning About Generalized Anxiety Disorder material was published, Generalized Anxiety Disorder: Care Instructions material was published, Learning About Anxiety Disorders material was published presently taking Trazodone 100 mg bedtime, Cymbalta 30 mg daily, Lorazepam 0.5 mg daily, Sertraline 100 mg daily, Lamotrigine 50 mg daily, Buspar 10 mg three times a day, Lunesta 3 mg bedtime Depression- Cymbalta 30 mg daily Sertraline 100 mg daily, Lamotrigine 50 mg daily Anxiety- Buspar 10 mg three times a day Lorazepam 0.5 mg daily, UDS today and random Control substance agreement signed Insomnia- Trazodone 100 mg bedtime Lunesta 3 mg bedtime educated on healthy b/p 120/80 monitor b/p at home refer to PCP, on no b/p rx heart healthy diet and excise limit salt intake and caffeine Recommend decrease/stop cannabis use as it can negatively impact mood, motivation, anxiety, sleep, focus/concentration /memory (vigilance, elasticity, processing and attention); can also contribute to development of psychosis. Cannabis/marijuana information: http_s://colin.nih.g ov/publications/ivana gfacts/cannabis-mar qianaa http_s://www.COM DEV.Nearway/cannabis- xny-thfjgaku-pigzav rory-adhd/ http_s://www.monserrat.o rg/Bhaaa-Vratzl-Sfb ness/Mental-Health- Conditions http_s://psychcentr al.com/depression/t ju-mdnumdlra-bnmaen ea-dk-lnmjbjkrsc#tr eatments http__s://www.nimh. nih.gov/health/topi cs/jhrjfq-maunom-qg dications http__s://www.monserrat. org/Saevb-Pjxvhz-Ky lness/Treatments/Me zqju-Xtytgl-Nbwqoky ions educated on all medications, benefits, side effects and risk, and educated on depression, anxiety, and ADHD, mood d/o and educated on compliance of medications, metabolic and movement d/o education appointment's, continue therapy discussion with patient about course of treatment and patient instructions. education on serotonin syndrome Discussed and educated pt regarding benzodiazepines are generally not intended for prolonged use and that use can cause tolerance, dependence, depression, and associated memory issues including dementias (this list is not exhaustive). Benzodiazepine use is generally not recommended concurrently with pain medications and/or other controlled substances educated on all medications, benefits, side effects and risk, and educated on depression, anxiety, and ADHD, mood d/o and educated on compliance of medications, metabolic and movement d/o education appointment is, continue therapy discussion with patient about course of treatment and patient instructions. education on serotonin syndrome SSRI/SNRI side effects discussed including but not limited to, gastric upset, nausea, vomiting, diarrhea and/or constipation, weight changes, sexual side effects including loss of libido, increased suicidal thoughts/behaviors in children and young adults, and serotonin syndrome. Lamotrigine lamotrigine has a serious rashes requiring hospitalization and discontinue treatment including Edmund John syndrome rare case of toxic epidermal necrolysis and cache related deaths. Incidence with adjunct of epilepsy treatment 0.8% in 2 to 16 years old and 0.3% in adults, bipolar and other mood disorders incidence 0.8% this initial monotherapy and 0.13% as adjunctive treatment. Other risk factor may include concomitant use of valproate acid derivative or exceeding initial lamotrigine does or does as clinician recommendation; most life-threatening rash of occurring first 2 to 8 week of treatment with isolated cases after prolonged treatment; though benign may occur, discontinue treatment at first sign of rash unless clearly not a drug related; TC treatment may not prevent trash from becoming life-threatening or permanently disabling or disfiguring. Comment reaction include, nausea/vomiting, dizziness/vertigo, visual disturbances, somnolence, ataxia, pruritus/rash, pharyngitis, headache, rhinitis, diarrhea, fever, asthenia, insomnia, tremor, abdominal pain, cough, accidental injury, constipation, dysmenorrhea, incoordination, anxiety, seizures, irritability, anorexia, xerostomia, and photosensitivity. Serious reactions include: Rash, severe; Quijano John syndrome; toxic epidermal necrosis; injury edema, hypersensitivity reactions. Including fatal, multiple organ failure to safe fatal, rash with eosinophilia systemic symptoms, DIC, neutropenia, leukopenia, thrombocytopenia, pancytopenia, aplastic anemia, hemolytic anemia, i pancreatitis, hepatic failure, rhabdomyolysis, worsening of suicidal ideation, worsening of depression, cleft lip/palate [first trimester use] DO not Change Cosmetic, perfumes or soap for next 4 weeks. The patient was advice to take lamotrigine as prescribed the patient was instructed not to deviate from the prescription dosages. Stop lamotrigine is the first sign of rash. Patient was insisted to inform office if any of the serious side effect develops. Medication Management and Follow-Up - Plan: - Schedule follow-up appointments every 1-3 months to monitor the patient's response to the medication regimen. - Reinforce the importance of avoiding recreational drug use due to potential neurotoxicity and interactions with prescribed medications. 09/19/2024 Major depressive disorder, recurrent, mild (ICD-10 - F33.0) Preventing Depression From Coming Back: Care Instructions material was published, Learning About Depression material was published, Learning About Depression Screening material was published, Learning About How to Get Help During a Mental Health Crisis material was published, Depression Treatment: Care Instructions material was published stable Depression- Cymbalta 30 mg daily Sertraline 100 mg daily, Lamotrigine 50 mg daily Anxiety- Buspar 10 mg three times a day Lorazepam 0.5 mg daily, UDS today and random Control substance agreement signed Insomnia- Trazodone 100 mg bedtime Lunesta 3 mg bedtime educated on healthy b/p 120/80 monitor b/p at home refer to PCP, on no b/p rx heart healthy diet and excise limit salt intake and caffeine Recommend decrease/stop cannabis use as it can negatively impact mood, motivation, anxiety, sleep, focus/concentration /memory (vigilance, elasticity, processing and attention); can also contribute to development of psychosis. Cannabis/marijuana information: http_s://colin.nih.g ov/publications/ivana gfacts/cannabis-mar ijuana http_s://www.ParAccel/cannabis- gli-gyznpaia-cnumlm rory-adhd/ http_s://www.monserrat.o /Fuhbx-Wffvuu-Txx ness/Mental-Health- Conditions http_s://psychcentr Guruji.com/depression/t fa-tejdexbkn-knfvbc cu-mb-ivutlmbqbh#tr eatments http__s://www.nimh. nih.gov/health/topi cs/mvvpox-cdbtwo-ys dications http__s://www.monserrat. org/Xxnli-Rwsgsf-Ne lness/Treatments/Me dxys-Pqvfve-Fibwjev ions educated on all medications, benefits, side effects and risk, and educated on depression, anxiety, and ADHD, mood d/o and educated on compliance of medications, metabolic and movement d/o education appointment's, continue therapy discussion with patient about course of treatment and patient instructions. education on serotonin syndrome Discussed and educated pt regarding benzodiazepines are generally not intended for prolonged use and that use can cause tolerance, dependence, depression, and associated memory issues including dementias (this list is not exhaustive). Benzodiazepine use is generally not recommended concurrently with pain medications and/or other controlled substances educated on all medications, benefits, side effects and risk, and educated on depression, anxiety, and ADHD, mood d/o and educated on compliance of medications, metabolic and movement d/o education appointment is, continue therapy discussion with patient about course of treatment and patient instructions. education on serotonin syndrome SSRI/SNRI side effects discussed including but not limited to, gastric upset, nausea, vomiting, diarrhea and/or constipation, weight changes, sexual side effects including loss of libido, increased suicidal thoughts/behaviors in children and young adults, and serotonin syndrome. Lamotrigine lamotrigine has a serious rashes requiring hospitalization and discontinue treatment including Edmund John syndrome rare case of toxic epidermal necrolysis and cache related deaths. Incidence with adjunct of epilepsy treatment 0.8% in 2 to 16 years old and 0.3% in adults, bipolar and other mood disorders incidence 0.8% this initial monotherapy and 0.13% as adjunctive treatment. Other risk factor may include concomitant use of valproate acid derivative or exceeding initial lamotrigine does or does as clinician recommendation; most life-threatening rash of occurring first 2 to 8 week of treatment with isolated cases after prolonged treatment; though benign may occur, discontinue treatment at first sign of rash unless clearly not a drug related; TC treatment may not prevent trash from becoming life-threatening or permanently disabling or disfiguring. Comment reaction include, nausea/vomiting, dizziness/vertigo, visual disturbances, somnolence, ataxia, pruritus/rash, pharyngitis, headache, rhinitis, diarrhea, fever, asthenia, insomnia, tremor, abdominal pain, cough, accidental injury, constipation, dysmenorrhea, incoordination, anxiety, seizures, irritability, anorexia, xerostomia, and photosensitivity. Serious reactions include: Rash, severe; Quijano John syndrome; toxic epidermal necrosis; injury edema, hypersensitivity reactions. Including fatal, multiple organ failure to safe fatal, rash with eosinophilia systemic symptoms, DIC, neutropenia, leukopenia, thrombocytopenia, pancytopenia, aplastic anemia, hemolytic anemia, i pancreatitis, hepatic failure, rhabdomyolysis, worsening of suicidal ideation, worsening of depression, cleft lip/palate [first trimester use] DO not Change Cosmetic, perfumes or soap for next 4 weeks. The patient was advice to take lamotrigine as prescribed the patient was instructed not to deviate from the prescription dosages. Stop lamotrigine is the first sign of rash. Patient was insisted to inform office if any of the serious side effect develops. Medication Management and Follow-Up - Plan: - Schedule follow-up appointments every 1-3 months to monitor the patient's response to the medication regimen. - Reinforce the importance of avoiding recreational drug use due to potential neurotoxicity and interactions with prescribed medications. 09/19/2024 Generalized anxiety disorder (ICD-10 - F41.1) Learning About Generalized Anxiety Disorder material was published, Generalized Anxiety Disorder: Care Instructions material was published, Learning About Anxiety Disorders material was published stable Depression- Cymbalta 30 mg daily Sertraline 100 mg daily, Lamotrigine 50 mg daily Anxiety- Buspar 10 mg three times a day Lorazepam 0.5 mg daily, UDS today and random Control substance agreement signed Insomnia- Trazodone 100 mg bedtime Lunesta 3 mg bedtime educated on healthy b/p 120/80 monitor b/p at home refer to PCP, on no b/p rx heart healthy diet and excise limit salt intake and caffeine Recommend decrease/stop cannabis use as it can negatively impact mood, motivation, anxiety, sleep, focus/concentration /memory (vigilance, elasticity, processing and attention); can also contribute to development of psychosis. Cannabis/marijuana information: http_s://colin.nih.g ov/publications/ivana gfacts/cannabis-mar ijuana http_s://www.Par[employer]el/cannabis- yor-rjfggvcv-dtspiy rory-adhd/ http_s://www.monserrat.o rg/Pgxqh-Ibvtwd-Kif ness/Mental-Health- Conditions http_s://psychcentr Guruji.com/depression/t ox-litlsuong-cdotfk qu-so-raapglqckh#tr eatments http__s://www.nimh. nih.gov/health/topi cs/wmsdnj-oaqarw-ah dications http__s://www.monserrat. org/Qvxxc-Iyqooz-Xf lness/Treatments/Me owph-Hwprkq-Qhryqte ions educated on all medications, benefits, side effects and risk, and educated on depression, anxiety, and ADHD, mood d/o and educated on compliance of medications, metabolic and movement d/o education appointment's, continue therapy discussion with patient about course of treatment and patient instructions. education on serotonin syndrome Discussed and educated pt regarding benzodiazepines are generally not intended for prolonged use and that use can cause tolerance, dependence, depression, and associated memory issues including dementias (this list is not exhaustive). Benzodiazepine use is generally not recommended concurrently with pain medications and/or other controlled substances educated on all medications, benefits, side effects and risk, and educated on depression, anxiety, and ADHD, mood d/o and educated on compliance of medications, metabolic and movement d/o education appointment is, continue therapy discussion with patient about course of treatment and patient instructions. education on serotonin syndrome SSRI/SNRI side effects discussed including but not limited to, gastric upset, nausea, vomiting, diarrhea and/or constipation, weight changes, sexual side effects including loss of libido, increased suicidal thoughts/behaviors in children and young adults, and serotonin syndrome. Lamotrigine lamotrigine has a serious rashes requiring hospitalization and discontinue treatment including Edmund John syndrome rare case of toxic epidermal necrolysis and cache related deaths. Incidence with adjunct of epilepsy treatment 0.8% in 2 to 16 years old and 0.3% in adults, bipolar and other mood disorders incidence 0.8% this initial monotherapy and 0.13% as adjunctive treatment. Other risk factor may include concomitant use of valproate acid derivative or exceeding initial lamotrigine does or does as clinician recommendation; most life-threatening rash of occurring first 2 to 8 week of treatment with isolated cases after prolonged treatment; though benign may occur, discontinue treatment at first sign of rash unless clearly not a drug related; TC treatment may not prevent trash from becoming life-threatening or permanently disabling or disfiguring. Comment reaction include, nausea/vomiting, dizziness/vertigo, visual disturbances, somnolence, ataxia, pruritus/rash, pharyngitis, headache, rhinitis, diarrhea, fever, asthenia, insomnia, tremor, abdominal pain, cough, accidental injury, constipation, dysmenorrhea, incoordination, anxiety, seizures, irritability, anorexia, xerostomia, and photosensitivity. Serious reactions include: Rash, severe; Quijano John syndrome; toxic epidermal necrosis; injury edema, hypersensitivity reactions. Including fatal, multiple organ failure to safe fatal, rash with eosinophilia systemic symptoms, DIC, neutropenia, leukopenia, thrombocytopenia, pancytopenia, aplastic anemia, hemolytic anemia, i pancreatitis, hepatic failure, rhabdomyolysis, worsening of suicidal ideation, worsening of depression, cleft lip/palate [first trimester use] DO not Change Cosmetic, perfumes or soap for next 4 weeks. The patient was advice to take lamotrigine as prescribed the patient was instructed not to deviate from the prescription dosages. Stop lamotrigine is the first sign of rash. Patient was insisted to inform office if any of the serious side effect develops. Medication Management and Follow-Up - Plan: - Schedule follow-up appointments every 1-3 months to monitor the patient's response to the medication regimen. - Reinforce the importance of avoiding recreational drug use due to potential neurotoxicity and interactions with prescribed medications. 04/28/2024 Insomnia due to other mental disorder (ICD-10 - F51.05) presently taking Trazodone 100 mg bedtime, Cymbalta 30 mg daily, Lorazepam 0.5 mg daily, Sertraline 100 mg daily, Lamotrigine 50 mg daily, Buspar 10 mg three times a day, Lunesta 3 mg bedtime Depression- Cymbalta 30 mg daily Sertraline 100 mg daily, Lamotrigine 50 mg daily Anxiety- Buspar 10 mg three times a day Lorazepam 0.5 mg daily, UDS today and random Control substance agreement signed Insomnia- Trazodone 100 mg bedtime Lunesta 3 mg bedtime educated on healthy b/p 120/80 monitor b/p at home refer to PCP, on no b/p rx heart healthy diet and excise limit salt intake and caffeine Recommend decrease/stop cannabis use as it can negatively impact mood, motivation, anxiety, sleep, focus/concentration /memory (vigilance, elasticity, processing and attention); can also contribute to development of psychosis. Cannabis/marijuana information: http_s://colin.nih.g ov/publications/ivana gfacts/cannabis-mar ijuana http_s://www.[employer]/cannabis- qej-uvnvvsqi-xfmpsm rory-adhd/ http_s://www.monserrat.o rg/Blrwc-Fsrjjg-Byy ness/Mental-Health- Conditions http_s://psychcentr Guruji.com/depression/t gb-fjfvumrgj-yojamd nn-tt-wdyybeqyhy#tr eatments http__s://www.nimh. nih.gov/health/topi cs/phbcdf-ppprzt-uk dications http__s://www.monserrat. org/Poakc-Bmxkpq-Jf lness/Treatments/Me eawf-Nhkpwy-Ahqford ions educated on all medications, benefits, side effects and risk, and educated on depression, anxiety, and ADHD, mood d/o and educated on compliance of medications, metabolic and movement d/o education appointment's, continue therapy discussion with patient about course of treatment and patient instructions. education on serotonin syndrome Discussed and educated pt regarding benzodiazepines are generally not intended for prolonged use and that use can cause tolerance, dependence, depression, and associated memory issues including dementias (this list is not exhaustive). Benzodiazepine use is generally not recommended concurrently with pain medications and/or other controlled substances educated on all medications, benefits, side effects and risk, and educated on depression, anxiety, and ADHD, mood d/o and educated on compliance of medications, metabolic and movement d/o education appointment is, continue therapy discussion with patient about course of treatment and patient instructions. education on serotonin syndrome SSRI/SNRI side effects discussed including but not limited to, gastric upset, nausea, vomiting, diarrhea and/or constipation, weight changes, sexual side effects including loss of libido, increased suicidal thoughts/behaviors in children and young adults, and serotonin syndrome. Lamotrigine lamotrigine has a serious rashes requiring hospitalization and discontinue treatment including Edmund John syndrome rare case of toxic epidermal necrolysis and cache related deaths. Incidence with adjunct of epilepsy treatment 0.8% in 2 to 16 years old and 0.3% in adults, bipolar and other mood disorders incidence 0.8% this initial monotherapy and 0.13% as adjunctive treatment. Other risk factor may include concomitant use of valproate acid derivative or exceeding initial lamotrigine does or does as clinician recommendation; most life-threatening rash of occurring first 2 to 8 week of treatment with isolated cases after prolonged treatment; though benign may occur, discontinue treatment at first sign of rash unless clearly not a drug related; TC treatment may not prevent trash from becoming life-threatening or permanently disabling or disfiguring. Comment reaction include, nausea/vomiting, dizziness/vertigo, visual disturbances, somnolence, ataxia, pruritus/rash, pharyngitis, headache, rhinitis, diarrhea, fever, asthenia, insomnia, tremor, abdominal pain, cough, accidental injury, constipation, dysmenorrhea, incoordination, anxiety, seizures, irritability, anorexia, xerostomia, and photosensitivity. Serious reactions include: Rash, severe; Quijano John syndrome; toxic epidermal necrosis; injury edema, hypersensitivity reactions. Including fatal, multiple organ failure to safe fatal, rash with eosinophilia systemic symptoms, DIC, neutropenia, leukopenia, thrombocytopenia, pancytopenia, aplastic anemia, hemolytic anemia, i pancreatitis, hepatic failure, rhabdomyolysis, worsening of suicidal ideation, worsening of depression, cleft lip/palate [first trimester use] DO not Change Cosmetic, perfumes or soap for next 4 weeks. The patient was advice to take lamotrigine as prescribed the patient was instructed not to deviate from the prescription dosages. Stop lamotrigine is the first sign of rash. Patient was insisted to inform office if any of the serious side effect develops. Medication Management and Follow-Up - Plan: - Schedule follow-up appointments every 1-3 months to monitor the patient's response to the medication regimen. - Reinforce the importance of avoiding recreational drug use due to potential neurotoxicity and interactions with prescribed medications. 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) Medication Refill: Care Instructions material was published presently taking Trazodone 100 mg bedtime, Cymbalta 30 mg daily, Lorazepam 0.5 mg daily, Sertraline 100 mg daily, Lamotrigine 50 mg daily, Buspar 10 mg three times a day, Lunesta 3 mg bedtime Depression- Cymbalta 30 mg daily Sertraline 100 mg daily, Lamotrigine 50 mg daily Anxiety- Buspar 10 mg three times a day Lorazepam 0.5 mg daily, UDS today and random Control substance agreement signed Insomnia- Trazodone 100 mg bedtime Lunesta 3 mg bedtime educated on healthy b/p 120/80 monitor b/p at home refer to PCP, on no b/p rx heart healthy diet and excise limit salt intake and caffeine Recommend decrease/stop cannabis use as it can negatively impact mood, motivation, anxiety, sleep, focus/concentration /memory (vigilance, elasticity, processing and attention); can also contribute to development of psychosis. Cannabis/marijuana information: http_s://colin.nih.g ov/publications/ivana gfacts/cannabis-mar ijuana http_s://www.COM DEV.Nearway/cannabis- afy-hgpftrvc-npkhiw rory-adhd/ http_s://www.monserrat.o rg/Xbjef-Mmlasi-Svy ness/Mental-Health- Conditions http_s://psychcentr al.com/depression/t ha-enspvbpby-vsqrdy pr-hz-wjtcdtjyvb#tr eatments http__s://www.nimh. nih.gov/health/topi cs/qhstut-fkgqba-li dications http__s://www.monserrat. org/Ovtty-Xuliec-Rf lness/Treatments/Me mbfw-Idxekx-Nfahbhv ions educated on all medications, benefits, side effects and risk, and educated on depression, anxiety, and ADHD, mood d/o and educated on compliance of medications, metabolic and movement d/o education appointment's, continue therapy discussion with patient about course of treatment and patient instructions. education on serotonin syndrome Discussed and educated pt regarding benzodiazepines are generally not intended for prolonged use and that use can cause tolerance, dependence, depression, and associated memory issues including dementias (this list is not exhaustive). Benzodiazepine use is generally not recommended concurrently with pain medications and/or other controlled substances educated on all medications, benefits, side effects and risk, and educated on depression, anxiety, and ADHD, mood d/o and educated on compliance of medications, metabolic and movement d/o education appointment is, continue therapy discussion with patient about course of treatment and patient instructions. education on serotonin syndrome SSRI/SNRI side effects discussed including but not limited to, gastric upset, nausea, vomiting, diarrhea and/or constipation, weight changes, sexual side effects including loss of libido, increased suicidal thoughts/behaviors in children and young adults, and serotonin syndrome. Lamotrigine lamotrigine has a serious rashes requiring hospitalization and discontinue treatment including Edmund John syndrome rare case of toxic epidermal necrolysis and cache related deaths. Incidence with adjunct of epilepsy treatment 0.8% in 2 to 16 years old and 0.3% in adults, bipolar and other mood disorders incidence 0.8% this initial monotherapy and 0.13% as adjunctive treatment. Other risk factor may include concomitant use of valproate acid derivative or exceeding initial lamotrigine does or does as clinician recommendation; most life-threatening rash of occurring first 2 to 8 week of treatment with isolated cases after prolonged treatment; though benign may occur, discontinue treatment at first sign of rash unless clearly not a drug related; TC treatment may not prevent trash from becoming life-threatening or permanently disabling or disfiguring. Comment reaction include, nausea/vomiting, dizziness/vertigo, visual disturbances, somnolence, ataxia, pruritus/rash, pharyngitis, headache, rhinitis, diarrhea, fever, asthenia, insomnia, tremor, abdominal pain, cough, accidental injury, constipation, dysmenorrhea, incoordination, anxiety, seizures, irritability, anorexia, xerostomia, and photosensitivity. Serious reactions include: Rash, severe; Quijano John syndrome; toxic epidermal necrosis; injury edema, hypersensitivity reactions. Including fatal, multiple organ failure to safe fatal, rash with eosinophilia systemic symptoms, DIC, neutropenia, leukopenia, thrombocytopenia, pancytopenia, aplastic anemia, hemolytic anemia, i pancreatitis, hepatic failure, rhabdomyolysis, worsening of suicidal ideation, worsening of depression, cleft lip/palate [first trimester use] DO not Change Cosmetic, perfumes or soap for next 4 weeks. The patient was advice to take lamotrigine as prescribed the patient was instructed not to deviate from the prescription dosages. Stop lamotrigine is the first sign of rash. Patient was insisted to inform office if any of the serious side effect develops. Medication Management and Follow-Up - Plan: - Schedule follow-up appointments every 1-3 months to monitor the patient's response to the medication regimen. - Reinforce the importance of avoiding recreational drug use due to potential neurotoxicity and interactions with prescribed medications. 09/19/2024 Insomnia due to other mental disorder (ICD-10 - F51.05) stable Depression- Cymbalta 30 mg daily Sertraline 100 mg daily, Lamotrigine 50 mg daily Anxiety- Buspar 10 mg three times a day Lorazepam 0.5 mg daily, UDS today and random Control substance agreement signed Insomnia- Trazodone 100 mg bedtime Lunesta 3 mg bedtime educated on healthy b/p 120/80 monitor b/p at home refer to PCP, on no b/p rx heart healthy diet and excise limit salt intake and caffeine Recommend decrease/stop cannabis use as it can negatively impact mood, motivation, anxiety, sleep, focus/concentration /memory (vigilance, elasticity, processing and attention); can also contribute to development of psychosis. Cannabis/marijuana information: http_s://colin.nih.g ov/publications/ivana gfacts/cannabis-mar ijuana http_s://www.COM DEV.Nearway/cannabis- tmj-mlozemsz-eskgdy rory-adhd/ http_s://www.monserrat.o rg/Hzmoe-Bofnfc-Efw ness/Mental-Health- Conditions http_s://psychcentr al.com/depression/t wn-vnojrsqup-uvkyiy ll-zg-jiappslsxs#tr eatments http__s://www.nimh. nih.gov/health/topi cs/cwvemp-aixwna-ce dications http__s://www.monserrat. org/Tutxd-Epyoum-Yz lness/Treatments/Me zdzt-Ptqsmz-Prjqwqm ions educated on all medications, benefits, side effects and risk, and educated on depression, anxiety, and ADHD, mood d/o and educated on compliance of medications, metabolic and movement d/o education appointment's, continue therapy discussion with patient about course of treatment and patient instructions. education on serotonin syndrome Discussed and educated pt regarding benzodiazepines are generally not intended for prolonged use and that use can cause tolerance, dependence, depression, and associated memory issues including dementias (this list is not exhaustive). Benzodiazepine use is generally not recommended concurrently with pain medications and/or other controlled substances educated on all medications, benefits, side effects and risk, and educated on depression, anxiety, and ADHD, mood d/o and educated on compliance of medications, metabolic and movement d/o education appointment is, continue therapy discussion with patient about course of treatment and patient instructions. education on serotonin syndrome SSRI/SNRI side effects discussed including but not limited to, gastric upset, nausea, vomiting, diarrhea and/or constipation, weight changes, sexual side effects including loss of libido, increased suicidal thoughts/behaviors in children and young adults, and serotonin syndrome. Lamotrigine lamotrigine has a serious rashes requiring hospitalization and discontinue treatment including Edmund John syndrome rare case of toxic epidermal necrolysis and cache related deaths. Incidence with adjunct of epilepsy treatment 0.8% in 2 to 16 years old and 0.3% in adults, bipolar and other mood disorders incidence 0.8% this initial monotherapy and 0.13% as adjunctive treatment. Other risk factor may include concomitant use of valproate acid derivative or exceeding initial lamotrigine does or does as clinician recommendation; most life-threatening rash of occurring first 2 to 8 week of treatment with isolated cases after prolonged treatment; though benign may occur, discontinue treatment at first sign of rash unless clearly not a drug related; TC treatment may not prevent trash from becoming life-threatening or permanently disabling or disfiguring. Comment reaction include, nausea/vomiting, dizziness/vertigo, visual disturbances, somnolence, ataxia, pruritus/rash, pharyngitis, headache, rhinitis, diarrhea, fever, asthenia, insomnia, tremor, abdominal pain, cough, accidental injury, constipation, dysmenorrhea, incoordination, anxiety, seizures, irritability, anorexia, xerostomia, and photosensitivity. Serious reactions include: Rash, severe; Quijano John syndrome; toxic epidermal necrosis; injury edema, hypersensitivity reactions. Including fatal, multiple organ failure to safe fatal, rash with eosinophilia systemic symptoms, DIC, neutropenia, leukopenia, thrombocytopenia, pancytopenia, aplastic anemia, hemolytic anemia, i pancreatitis, hepatic failure, rhabdomyolysis, worsening of suicidal ideation, worsening of depression, cleft lip/palate [first trimester use] DO not Change Cosmetic, perfumes or soap for next 4 weeks. The patient was advice to take lamotrigine as prescribed the patient was instructed not to deviate from the prescription dosages. Stop lamotrigine is the first sign of rash. Patient was insisted to inform office if any of the serious side effect develops. Medication Management and Follow-Up - Plan: - Schedule follow-up appointments every 1-3 months to monitor the patient's response to the medication regimen. - Reinforce the importance of avoiding recreational drug use due to potential neurotoxicity and interactions with prescribed medications. 09/19/2024 Other mcc (current) drug therapy (ICD-10 - Z79.899) Medication Refill: Care Instructions material was published stable Depression- Cymbalta 30 mg daily Sertraline 100 mg daily, Lamotrigine 50 mg daily Anxiety- Buspar 10 mg three times a day Lorazepam 0.5 mg daily, UDS today and random Control substance agreement signed Insomnia- Trazodone 100 mg bedtime Lunesta 3 mg bedtime educated on healthy b/p 120/80 monitor b/p at home refer to PCP, on no b/p rx heart healthy diet and excise limit salt intake and caffeine Recommend decrease/stop cannabis use as it can negatively impact mood, motivation, anxiety, sleep, focus/concentration /memory (vigilance, elasticity, processing and attention); can also contribute to development of psychosis. Cannabis/marijuana information: http_s://colin.nih.g ov/publications/ivana gfacts/cannabis-mar ijuana http_s://www.COM DEV.Nearway/cannabis- cwk-fbdbwvkc-vczhpw rory-adhd/ http_s://www.monserrat.o rg/Tssud-Vbsoxz-Oob ness/Mental-Health- Conditions http_s://psychcentr al.com/depression/t ki-qwmsfalng-cgehpa hr-st-djztqjcddp#tr eatments http__s://www.nimh. nih.gov/health/topi cs/otbjvh-tyovlt-ip dications http__s://www.monserrat. org/Qnnvp-Lpdocc-Gr lness/Treatments/Me abma-Caqthk-Ybtegcl ions educated on all medications, benefits, side effects and risk, and educated on depression, anxiety, and ADHD, mood d/o and educated on compliance of medications, metabolic and movement d/o education appointment's, continue therapy discussion with patient about course of treatment and patient instructions. education on serotonin syndrome Discussed and educated pt regarding benzodiazepines are generally not intended for prolonged use and that use can cause tolerance, dependence, depression, and associated memory issues including dementias (this list is not exhaustive). Benzodiazepine use is generally not recommended concurrently with pain medications and/or other controlled substances educated on all medications, benefits, side effects and risk, and educated on depression, anxiety, and ADHD, mood d/o and educated on compliance of medications, metabolic and movement d/o education appointment is, continue therapy discussion with patient about course of treatment and patient instructions. education on serotonin syndrome SSRI/SNRI side effects discussed including but not limited to, gastric upset, nausea, vomiting, diarrhea and/or constipation, weight changes, sexual side effects including loss of libido, increased suicidal thoughts/behaviors in children and young adults, and serotonin syndrome. Lamotrigine lamotrigine has a serious rashes requiring hospitalization and discontinue treatment including Edmund John syndrome rare case of toxic epidermal necrolysis and cache related deaths. Incidence with adjunct of epilepsy treatment 0.8% in 2 to 16 years old and 0.3% in adults, bipolar and other mood disorders incidence 0.8% this initial monotherapy and 0.13% as adjunctive treatment. Other risk factor may include concomitant use of valproate acid derivative or exceeding initial lamotrigine does or does as clinician recommendation; most life-threatening rash of occurring first 2 to 8 week of treatment with isolated cases after prolonged treatment; though benign may occur, discontinue treatment at first sign of rash unless clearly not a drug related; TC treatment may not prevent trash from becoming life-threatening or permanently disabling or disfiguring. Comment reaction include, nausea/vomiting, dizziness/vertigo, visual disturbances, somnolence, ataxia, pruritus/rash, pharyngitis, headache, rhinitis, diarrhea, fever, asthenia, insomnia, tremor, abdominal pain, cough, accidental injury, constipation, dysmenorrhea, incoordination, anxiety, seizures, irritability, anorexia, xerostomia, and photosensitivity. Serious reactions include: Rash, severe; Quijano John syndrome; toxic epidermal necrosis; injury edema, hypersensitivity reactions. Including fatal, multiple organ failure to safe fatal, rash with eosinophilia systemic symptoms, DIC, neutropenia, leukopenia, thrombocytopenia, pancytopenia, aplastic anemia, hemolytic anemia, i pancreatitis, hepatic failure, rhabdomyolysis, worsening of suicidal ideation, worsening of depression, cleft lip/palate [first trimester use] DO not Change Cosmetic, perfumes or soap for next 4 weeks. The patient was advice to take lamotrigine as prescribed the patient was instructed not to deviate from the prescription dosages. Stop lamotrigine is the first sign of rash. Patient was insisted to inform office if any of the serious side effect develops. Medication Management and Follow-Up - Plan: - Schedule follow-up appointments every 1-3 months to monitor the patient's response to the medication regimen. - Reinforce the importance of avoiding recreational drug use due to potential neurotoxicity and interactions with prescribed medications. 04/28/2024 Other Lamotrigine Oral Tablet (LAMOTRIGINE - ORAL) material was published, Sertraline Oral Tablet (SERTRALINE - ORAL) material was published, Buspirone Oral Tablet (BUSPIRONE - ORAL) material was published, Duloxetine Delayed Release Oral Capsule 30 mg (DULOXETINE - ORAL) material was published, Lorazepam Oral Tablet (LORAZEPAM - ORAL) material was published, Eszopiclone Oral Tablet (ESZOPICLONE - ORAL) material was published presently taking Trazodone 100 mg bedtime, Cymbalta 30 mg daily, Lorazepam 0.5 mg daily, Sertraline 100 mg daily, Lamotrigine 50 mg daily, Buspar 10 mg three times a day, Lunesta 3 mg bedtime Depression- Cymbalta 30 mg daily Sertraline 100 mg daily, Lamotrigine 50 mg daily Anxiety- Buspar 10 mg three times a day Lorazepam 0.5 mg daily, UDS today and random Control substance agreement signed Insomnia- Trazodone 100 mg bedtime Lunesta 3 mg bedtime educated on healthy b/p 120/80 monitor b/p at home refer to PCP, on no b/p rx heart healthy diet and excise limit salt intake and caffeine Recommend decrease/stop cannabis use as it can negatively impact mood, motivation, anxiety, sleep, focus/concentration /memory (vigilance, elasticity, processing and attention); can also contribute to development of psychosis. Cannabis/marijuana information: http_s://colin.nih.g ov/publications/ivana gfacts/cannabis-mar ijuana http_s://www.ParAccel/cannabis- xau-vkiqqixc-svukqn rory-adhd/ http_s://www.monserrat.o rg/Ejyja-Fvdpbw-Joq ness/Mental-Health- Conditions http_s://psychcentr Guruji.com/depression/t ge-shhdvyeqy-xwfyia oc-kt-cgowpdsfxx#tr eatments http__s://www.nimh. nih.gov/health/topi cs/bfbjii-yclhqw-ge dications http__s://www.monserrat. org/Axqrx-Skjtgm-Ce lness/Treatments/Me jkms-Eqaezd-Gvgepnq ions educated on all medications, benefits, side effects and risk, and educated on depression, anxiety, and ADHD, mood d/o and educated on compliance of medications, metabolic and movement d/o education appointment's, continue therapy discussion with patient about course of treatment and patient instructions. education on serotonin syndrome Discussed and educated pt regarding benzodiazepines are generally not intended for prolonged use and that use can cause tolerance, dependence, depression, and associated memory issues including dementias (this list is not exhaustive). Benzodiazepine use is generally not recommended concurrently with pain medications and/or other controlled substances educated on all medications, benefits, side effects and risk, and educated on depression, anxiety, and ADHD, mood d/o and educated on compliance of medications, metabolic and movement d/o education appointment is, continue therapy discussion with patient about course of treatment and patient instructions. education on serotonin syndrome SSRI/SNRI side effects discussed including but not limited to, gastric upset, nausea, vomiting, diarrhea and/or constipation, weight changes, sexual side effects including loss of libido, increased suicidal thoughts/behaviors in children and young adults, and serotonin syndrome. Lamotrigine lamotrigine has a serious rashes requiring hospitalization and discontinue treatment including Edmund John syndrome rare case of toxic epidermal necrolysis and cache related deaths. Incidence with adjunct of epilepsy treatment 0.8% in 2 to 16 years old and 0.3% in adults, bipolar and other mood disorders incidence 0.8% this initial monotherapy and 0.13% as adjunctive treatment. Other risk factor may include concomitant use of valproate acid derivative or exceeding initial lamotrigine does or does as clinician recommendation; most life-threatening rash of occurring first 2 to 8 week of treatment with isolated cases after prolonged treatment; though benign may occur, discontinue treatment at first sign of rash unless clearly not a drug related; TC treatment may not prevent trash from becoming life-threatening or permanently disabling or disfiguring. Comment reaction include, nausea/vomiting, dizziness/vertigo, visual disturbances, somnolence, ataxia, pruritus/rash, pharyngitis, headache, rhinitis, diarrhea, fever, asthenia, insomnia, tremor, abdominal pain, cough, accidental injury, constipation, dysmenorrhea, incoordination, anxiety, seizures, irritability, anorexia, xerostomia, and photosensitivity. Serious reactions include: Rash, severe; Quijano John syndrome; toxic epidermal necrosis; injury edema, hypersensitivity reactions. Including fatal, multiple organ failure to safe fatal, rash with eosinophilia systemic symptoms, DIC, neutropenia, leukopenia, thrombocytopenia, pancytopenia, aplastic anemia, hemolytic anemia, i pancreatitis, hepatic failure, rhabdomyolysis, worsening of suicidal ideation, worsening of depression, cleft lip/palate [first trimester use] DO not Change Cosmetic, perfumes or soap for next 4 weeks. The patient was advice to take lamotrigine as prescribed the patient was instructed not to deviate from the prescription dosages. Stop lamotrigine is the first sign of rash. Patient was insisted to inform office if any of the serious side effect develops. Medication Management and Follow-Up - Plan: - Schedule follow-up appointments every 1-3 months to monitor the patient's response to the medication regimen. - Reinforce the importance of avoiding recreational drug use due to potential neurotoxicity and interactions with prescribed medications. Plan Of Treatment No Information Insurance Providers Payer Name Payer Address Payer Phone Subscriber Number Group Number Insured Name Patient Relationship to Insured Coverage Start Date Coverage End Date [employer] [address] [place] [address] [id number] ANA PAULA DE GUZMAN Spouse - patient is the spouse of the insured 4 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
== END 2024-12-04 14:28 | disposition home or self-care (01) ==
PROVIDERS: PCP Family Medicine; Visit Provider Anesthesiology Pain Medicine
DX: M16.12 Unilateral primary osteoarthritis, left hip (principal); S73.192A Other sprain of left hip, initial encounter; G89.29 Other chronic pain; M47.816 Spondylosis without myelopathy or radiculopathy, lumbar region
CPT/HCPCS: 20610; 73722; 77002; Q9966

== ENCOUNTER 2025-02-05 00:10 | Day surgery (SDC) | payer BC, SELFPAY ==
--- NOTE | 2025-01-30 09:37 | PC.NURSE ---
Report to the Outpatient Waiting Room, entrance under the green pavilion located off [facility], at time _12:30 on date _01/30/25 . Planned Procedure Time: __13:30 .? Time changes happen often and if your time is changed the preop area will call you the afternoon before. - You and your visitor will be asked to self-screen and do not enter if you have any COVID symptoms. Please call surgeon if you need to reschedule. - A mask is optional within the hospital at this time. Take only the following medications with a SIP of water on the morning of surgery: _TAKE NORMAL MEDS THE MORNING OF SURGERY DO NOT STOP ANY OF YOUR OTHER PRESCRIPTION MEDICATIONS PRIOR TO SURGERY EXCEPT THE FOLLOWING 1.IIt is alright to eat a light breafast/lunch prior to procedure depending on schedule time. Do not take anything other than scheduled medications with small amounts of clear liquid (water) for two hours prior to procedure. No smoking. 2. Take a bath/shower the evening before and morning of procedure. 3. Please take your scheduled medications, especially blood pressure and diabetes medications as prescribed, with small sips of water prior to procedure. You may also take your prescribed pain medicaitons as needed. 4. Patient is not allowed to drive 24 hours after procedure. Please no make-up, nail montenegrin, hairspray, perfume, deodorant, or body powder the day of surgery.? No jewelry (including any body piercings) or valuables the day of surgery, leave them at home.? Please take a shower or bath the night before, or the morning of, surgery with an antibacterial soap.? Wear comfortable, loose fitting clothing.? - Jewelry must be removed prior to entering the operating room.? Rings and piercings that are not removed may be cut off. - The hospital will not accept responsibility for valuables.? - Please leave all valuables, including medications, at home the day of surgery. If you are going home after surgery, a licensed refuse driver must drive you home.? - NO public transportation without another adult if you receive anesthesia. - We recommend that an adult stay with you for 24 hours following discharge. - We also recommend that you do not drive, make important decision, drink alcoholic beverages, or take any drugs that were not prescribed by your health care provider for at least 24 hours after your discharge time. For Pediatric surgeries, we recommend two adults accompany the child home. Follow any additional instructions given to you from your surgeon. Telephone instructions given to _ESTA and asked if any additional questions and then verbalized understanding. Patient advised to call surgeon office or pre surgery nurse liaison [phone] if any additional questions.
[2025-01-30 09:42] VITALS: BMI 21.4
--- NOTE | ~2025-02-05 | XR_ITS ---
EXAMINATION: XR fluoroscopy no charge DATE: 02/05/2025 13:30 CDT INDICATION: ART CLARITA BLOCKS LT HIP . TECHNIQUE: 10 fluoroscopic images of the left hip were obtained during left hip articular branch bloc k. Fluoroscopy exposure time was 1 minute 3.4 seconds. Air Kerma 11.447 mGy. DAP 2.2693 mGym2. COMPARISON: None FINDINGS/IMPRESSION: Fluoroscopic documentation of left hip articular branch block. Please refer to the operative note for complete procedural details. Reviewed, dictated and finalized at location K.
[2025-02-05 12:33] VITALS: BMI 22.5
[2025-02-05 12:40] VITALS: BP 140/85; PULSE 66; RESP 16; TEMP 36.6; O2SAT 99
--- NOTE | 2025-02-05 12:48 | PM.HPGS ---
History of Present Illness History of Present Illness Consent: Risks, benefits, and alternatives have been discussed and questions answered. Patient agrees to proceed with procedure. Chief complaint: OA, Pain Left Hip Narrative: Shimon Mederos is a 54 year old female with chronic, recalcitrant and disabling left hip pain secondary to degenerative osteoarthritis with failure to respond to aggressive conservative measures including PT, oral and topical analgesics, opioid and nonopioid analgesics, rest, time and activity/behavioral modification over the past 1-2 years who presents for diagnostic/prognostic blocks of the fermoral acetabular and obturator internus nerve branches supplying the left hip joint under fluoroscopic guidance. Review of Systems Review of Systems: All systems reviewed & are unremarkable except as noted in HPI and below PMFSH Past Medical History Medical History Colon cancer screening Back pain Dilated bile duct Pancreatic lesion Polyarthralgia Primary insomnia Post herpetic neuralgia Migraines Plantar fasciitis Hiatal hernia Anxiety Migraines Vaginal delivery x2 Surgical History Surgical History History of gastric surgery History of cholecystectomy Family History Family History Sibling Hypertension Father Family history of lung cancer Hypertension Mother Hypertension Family history of malignant melanoma Social History Social History Smoking status: Never smoker Second hand tobacco smoke exposure: No Alcohol intake: current Alcohol use details: Social Substance use: never Substance use type: does not use Do You Feel Safe in your Home?: Yes Lack of Transportation: No Lack of Food: Never True Current Housing: I Have Housing Concerned About Future Housing: No Difficulty Paying Gas/Electric Bills: No Difficulty Paying for Meds: No Currently Unemployed: No Education: Bachelor's Degree Living arrangements: with family Occupation/Education: other Additional occupation/education comments: Homemaker Gender identity (if verbalized by the patient): Female Spiritual care concerns: No Agree to blood products: Yes Meds Home Medications and Allergies Home Medications ?Medication ?Instructions ?Recorded ?Confirmed ?Type eszopiclone 3 mg tablet 3 mg PO HS 02/15/20 01/30/25 History trazodone 100 mg tablet 100 mg PO QHS PRN insomnia 12/26/20 01/30/25 History estradiol 0.1 mg/24 hr semiweekly See Rx Instructions .Route 09/14/23 01/30/25 Rx transdermal patch .COMPLEX #24 patches progesterone micronized 100 mg See Rx Instructions .Route 09/14/23 01/30/25 Rx capsule .COMPLEX #90 caps syringe with needle 3 mL 25 gauge #5 ea 10/01/23 10/19/24 Rx x 1 (BD Luer-Domi Syringe) rizatriptan 10 mg disintegrating 10 mg PO .COMPLEX PRN migraine 03/09/24 01/30/25 Rx tablet headache #30 tabs cyanocobalamin (vitamin B-12) 1,000 mcg IM MONTHLY #10 mL 03/28/24 01/30/25 Rx 1,000 mcg/mL injection solution lorazepam 0.5 mg tablet 0.5 mg PO .COMPLEX PRN Anxiety #3 08/08/24 01/30/25 Rx tabs pregabalin 200 mg capsule 200 mg PO TID #90 caps 09/01/24 01/30/25 Rx tramadol 50 mg tablet 50 mg PO Q8H PRN pain #21 tabs 11/28/24 01/30/25 Rx Allergies Allergy/AdvReac Type Severity Reaction Status Date / Time cat dander Allergy Unknown Unknown Verified 01/30/25 10:02 pollen extracts Allergy Unknown Unknown Verified 01/30/25 10:02 NSAIDS (Non-Steroidal AdvReac Intermediate Unknown Verified 01/30/25 10:02 Anti-Inflamma Exam Narrative: The patient's physical exam is essentially unchanged from prior examination on 12/25/24. Specifically, patient demonstrates normal lung capacity, tidal volume and respiratory rate without wheezes, crackles, rales or rubs. Heart rate and rhythm are regular without murmurs, gallops or rubs. No JVD. Pulses 2+ globally without increasing peripheral edema. AAOx3 with no evidence of confusion, intoxication or altered mental state, NC/AT without acute distress or altered consciousness. Speech, cognition, mood, insight and judgment at baseline and within normal limits. Assessment and Plan Assessment and plan (1) Arthralgia of hip, left: Code(s): M25.552 - Pain in left hip Status: Acute Assessment and Plan: proceed as planned with diagnostic/prognostic blocks of the fermoral acetabular and obturator internus nerve branches supplying the left hip joint under fluoroscopic guidance. (2) Osteoarthritis of left hip: Code(s): M16.12 - Unilateral primary osteoarthritis, left hip Status: Acute
--- NOTE | 2025-02-05 12:51 | WPDHPUPDATE1 ---
History and Physical Update Update Date/Time: 02/05/25 12:51 History and Physical has been reviewed, including an updated exam of the patient. There are NO changes in the patient's condition. Risks, benefits, and alternatives have been discussed and questions answered. Patient agrees to proceed with procedure.
--- NOTE | 2025-02-05 12:52 | W.PM.PROC2 ---
Procedure Note - Detailed Date of Procedure 02/05/25 Pre-op Diagnosis OA, Pain Left Hip Post-op Diagnosis Same Procedure Performed Left Prognostic Femoral Articular and Obturator Articular Branch Blocks under Fluoroscopic Guidance with Contrast Control. Surgeon Fernando Mulligan MD Anesthesia Local Description of Procedure INFORMED CONSENT: Risks, benefits and alternatives to the procedure were discussed in detail with the patient who expressed explicit understanding and consent to proceed. Patient was informed verbally and in written form regarding the risks associated with the procedure including the low risk of serious infection, bleeding/bruising, allergic reaction, nerve injury, paralysis, procedural site pain or discomfort, worsening pain and/or mobility, failure to treat and disfigurement. The patient expressed explicit understanding and consent to proceed. All materials required for the procedure were available prior to procedure start. Site and side was marked prior to procedure and confirmed in the presence of the patient. PROCEDURE IN DETAIL: The patient was brought to the procedural suite and placed in the supine position. Patient was made comfortable with use of pillows under the head/shoulder, knees and ankles. Skin overlying anterior and anterolateral surface of the pelvis and thigh at the level of inguinal crease was prepared broadly with ChloraPrep applicator and draped in a sterile manner. Aseptic technique was used throughout. The hip joint of interest was identified in the AP projection and view aligned with the plane of the ipsilateral obturator foramen. Location and course of the femoral artery, vein and accompanying nerve was identified by palpation of the arterial pulse and marked with a sterile skin marker. Local anesthesia was established by infiltration with approximately 3 mL of 0.5% lidocaine via a 1-1/2 inch 27- gauge needle. A 22-gauge 5-inch quincke spinal needle was intermittently advanced in the lateral and superior direction in the AP view (avoiding the course of the femoral vessels) until the needle tip contacted the anterior surface of the medial wall of the obturator foramen. Needle was advanced superiorly until positioned just inferior to the ischial isthmus at the location of the left obturator articular branches. After negative aspiration for blood, CSF or bodily fluid, 0.5 ml of Omnipaque 300 contrast medium was injected demonstrating lack of intra-articular, intravascular dye pattern. After repeat negative aspiration, 0.5ml of 0.5% PF Bupivacaine was injected to effectively block the targeted peripheral nerve. Previously injected contrast was diluted by local anesthetic confirming appropriate spread. No parasthesias elicited. Patient tolerated well. Attention was then turned to the completion of the femoral articular branch block. In the AP projection, a site inferior and lateral to the ipsilateral ASIS was anesthetized by local infiltration with approximately 3 mL of 0.5% lidocaine via a 1-1/2 inch 27-gauge needle. A 22-gauge 5-inch quincke spinal needle was intermittently advanced in medial to lateral direction in the AP view until the needle tip contacted the anterior surface of the superior portion of the acetabulum 5mm superior to the intra-articular space at a point bisecting the femoral head, the approximate location of the left femoral articular branches. After negative aspiration for blood, CSF or bodily fluid, 0.5 ml of the same contrast medium was injected demonstrating lack of intra-articular, intravascular dye pattern. After repeat negative aspiration, 0.5ml of the same local anesthetic mixture was injected to effectively block the targeted peripheral nerve. Previously injected contrast was diluted by local anesthetic confirming appropriate spread. No paresthesias elicited. Patient tolerated the procedure well. Images were saved and documented in the patient chart. Patient's skin was cleansed and sterile bandage applied. The patient tolerated the procedure well. The patient was transported to the recovery area in stable condition where they were observed for an appropriate amount of time prior to discharge, without evidence of complication. Patient was instructed on the completion of a pain diary prior to discharge and instructed to bring this diary with them to their next follow up evaluation. The patient was instructed to avoid excessive activity for the next 48 hours, including frequent use of stairs. They are to monitor for fevers, chills, night sweats, erythema/swelling at the site or any other signs of infection, bleeding/bruising as well as new pain, weakness or numbness in the upper extremity. Should they notice these changes, they are instructed to call our office or report immediately to the nearest Emergency Department if no answer or if after posted office hours. CONTRAST WASTED: 19ml Omnipaque 300 Complications No immediate complications Condition Stable Disposition Same day [facility] Billing Surgery - Charge Forward: Surgery Billing
[2025-02-05 13:38] VITALS: BP 164/85; PULSE 66; RESP 16; O2SAT 100
[2025-02-05 13:49] VITALS: BP 168/89; PULSE 59; RESP 16; O2SAT 100
[2025-02-05] MEDS: LIDOCAINE 1% LOCAL INJ 10 ML VIAL 4.5 ML INFILTRATE (13:53)
[2025-02-05] MEDS: BUPivacaine HCL 0.5% 10 ML AMP 1.5 ML INFILTRATE (13:54)
[2025-02-05 13:57] VITALS: BP 160/87; PULSE 51; RESP 14; O2SAT 100
== END 2025-02-05 14:16 | disposition home or self-care (01) ==
PROVIDERS: PCP Family Medicine; Visit Provider Anesthesiology Pain Medicine
PROC: (CPT 64450; principal; 2025-02-05 13:30)
DX: M25.552 Pain in left hip (principal); M16.12 Unilateral primary osteoarthritis, left hip
CPT/HCPCS: 64450; 64447; 99199; J2003; Q9965

== ENCOUNTER 2025-03-08 00:20 | Day surgery (SDC) | payer BC, SELFPAY ==
[2025-02-19 14:13] VITALS: BMI 22.8
[2025-03-08 10:18] VITALS: BP 140/81; PULSE 59; RESP 18; TEMP 36.4; O2SAT 99
--- NOTE | 2025-03-08 10:18 | WPDANESEPPF ---
Anes - Initial Pre Proc Eval Procedure: Operation Date: 03/08/25 11:30 Proposed Procedures p Colonoscopy - Quinten Mantilla MD Date/Time: 03/08/25 10:18 Surgeon: Quinten Mantilla MD Pre Op Diagnosis: Personal history of colon polyps, unspecified Patient Data Age: 54 Gender: F Height: 1.73 m Weight: 68.2 kg Allergies Allergy/AdvReac Type Severity Reaction Status Date / Time cat dander Allergy Unknown Unknown Verified 03/08/25 10:15 pollen extracts Allergy Unknown Unknown Verified 03/08/25 10:15 NSAIDS (Non-Steroidal AdvReac Intermediate Unknown Verified 03/08/25 10:15 Anti-Inflamma Home Medications ?Medication ?Instructions ?Recorded ?Confirmed ?Type eszopiclone 3 mg tablet 3 mg PO HS 02/15/20 02/27/25 History trazodone 100 mg tablet 100 mg PO QHS PRN insomnia 12/26/20 02/27/25 History estradiol 0.1 mg/24 hr semiweekly See Rx Instructions .Route 09/14/23 02/27/25 Rx transdermal patch .COMPLEX #24 patches progesterone micronized 100 mg See Rx Instructions .Route 09/14/23 02/27/25 Rx capsule .COMPLEX #90 caps syringe with needle 3 mL 25 gauge #5 ea 10/01/23 02/27/25 Rx x 1 (BD Luer-Domi Syringe) rizatriptan 10 mg disintegrating 10 mg PO .COMPLEX PRN migraine 03/09/24 02/27/25 Rx tablet headache #30 tabs cyanocobalamin (vitamin B-12) 1,000 mcg IM MONTHLY #10 mL 03/28/24 02/27/25 Rx 1,000 mcg/mL injection solution lorazepam 0.5 mg tablet 0.5 mg PO .COMPLEX PRN Anxiety #3 08/08/24 02/27/25 Rx tabs tramadol 50 mg tablet 50 mg PO Q8H PRN pain #21 tabs 02/19/25 02/27/25 Rx pregabalin 200 mg capsule 200 mg PO TID #90 caps 02/26/25 02/27/25 Rx Patient hx anesthesia problems: none Family hx anesthesia problems: none Results Review: All pre-operative results and documents have been reviewed as part of the pre-operative evaluation. [facility]LY [facility] Past Medical History Medical History Colon cancer screening Back pain Dilated bile duct Pancreatic lesion Polyarthralgia Primary insomnia Post herpetic neuralgia Migraines Plantar fasciitis Hiatal hernia Anxiety Migraines Vaginal delivery x2 Surgical History Surgical History History of gastric surgery History of cholecystectomy Family History Family History Sibling Hypertension Father Family history of lung cancer Hypertension Mother Hypertension Family history of malignant melanoma Social History Social History Smoking status: Never smoker Second hand tobacco smoke exposure: No Alcohol intake: current Alcohol use details: Social Substance use: never Substance use type: does not use Do You Feel Safe in your Home?: Yes Lack of Transportation: No Lack of Food: Never True Current Housing: I Have Housing Concerned About Future Housing: No Difficulty Paying Gas/Electric Bills: No Difficulty Paying for Meds: No Currently Unemployed: No Education: Bachelor's Degree Living arrangements: with family Occupation/Education: other Additional occupation/education comments: Homemaker Gender identity (if verbalized by the patient): Female Spiritual care concerns: No Agree to blood products: Yes Anes - Eval Final PreProcedure Day of Procedure 03/08/25 10:18 Patient weight: normal Heart: regular rate and rhythm Lungs: clear to auscultation Airway: Mallampati scale class II Neurological: alert and oriented Last oral intake: >/= 8 hours ASA classification: II Emergent: no Anesthetic plan: proceed Anesthesia type and monitoring: general GIVS and standard monitoring Results Review: All pre-operative results and documents have been reviewed as part of the pre-operative evaluation. Informed Consent: The patient's anesthetic plan and its attendant risks and benefits were discussed with the patient/family/POA. Questions were solicited and answers provided to the satisfaction of the patient/family/POA.
[2025-03-08] MEDS: LACTATED RINGERS 1,000 ML 150 ML IV CONT (10:28)
--- NOTE | 2025-03-08 10:52 | PM.HPGS ---
History of Present Illness History of Present Illness Consent: Risks, benefits, and alternatives have been discussed and questions answered. Patient agrees to proceed with procedure. Chief complaint: Personal history of colon polyps, unspecified Narrative: Shimon Mederos is a 54 year old female with colon polyp 5 years ago Review of Systems Review of Systems: All systems reviewed & are unremarkable except as noted in HPI and below PMFSH Past Medical History Medical History (Updated 03/08/25 @ 10:53 by Quinten Mantilla MD) Colon polyp Colon cancer screening Back pain Dilated bile duct Pancreatic lesion Polyarthralgia Primary insomnia Post herpetic neuralgia Migraines Plantar fasciitis Hiatal hernia Anxiety Migraines Vaginal delivery x2 Surgical History Surgical History History of gastric surgery History of cholecystectomy Family History Family History Sibling Hypertension Father Family history of lung cancer Hypertension Mother Hypertension Family history of malignant melanoma Social History Social History Smoking status: Never smoker Second hand tobacco smoke exposure: No Alcohol intake: current Alcohol use details: Social Substance use: never Substance use type: does not use Do You Feel Safe in your Home?: Yes Lack of Transportation: No Lack of Food: Never True Current Housing: I Have Housing Concerned About Future Housing: No Difficulty Paying Gas/Electric Bills: No Difficulty Paying for Meds: No Currently Unemployed: No Education: Bachelor's Degree Living arrangements: with family Occupation/Education: other Additional occupation/education comments: Homemaker Gender identity (if verbalized by the patient): Female Spiritual care concerns: No Agree to blood products: Yes Meds Home Medications and Allergies Home Medications ?Medication ?Instructions ?Recorded ?Confirmed ?Type eszopiclone 3 mg tablet 3 mg PO HS 02/15/20 02/27/25 History trazodone 100 mg tablet 100 mg PO QHS PRN insomnia 12/26/20 02/27/25 History estradiol 0.1 mg/24 hr semiweekly See Rx Instructions .Route 09/14/23 02/27/25 Rx transdermal patch .COMPLEX #24 patches progesterone micronized 100 mg See Rx Instructions .Route 09/14/23 02/27/25 Rx capsule .COMPLEX #90 caps syringe with needle 3 mL 25 gauge #5 ea 10/01/23 02/27/25 Rx x 1 (BD Luer-Domi Syringe) rizatriptan 10 mg disintegrating 10 mg PO .COMPLEX PRN migraine 03/09/24 02/27/25 Rx tablet headache #30 tabs cyanocobalamin (vitamin B-12) 1,000 mcg IM MONTHLY #10 mL 03/28/24 02/27/25 Rx 1,000 mcg/mL injection solution lorazepam 0.5 mg tablet 0.5 mg PO .COMPLEX PRN Anxiety #3 08/08/24 02/27/25 Rx tabs tramadol 50 mg tablet 50 mg PO Q8H PRN pain #21 tabs 02/19/25 02/27/25 Rx pregabalin 200 mg capsule 200 mg PO TID #90 caps 02/26/25 02/27/25 Rx Allergies Allergy/AdvReac Type Severity Reaction Status Date / Time cat dander Allergy Unknown Unknown Verified 03/08/25 10:15 pollen extracts Allergy Unknown Unknown Verified 03/08/25 10:15 NSAIDS (Non-Steroidal AdvReac Intermediate Unknown Verified 03/08/25 10:15 Anti-Inflamma Vital Signs Vital Signs - 24 hr 03/08/25 10:18 Temperature 97.6 F Pulse Rate 59 L Respiratory Rate 18 Blood Pressure 140/81 Pulse Oximetry 99 Oxygen Delivery Room Air Exam Const: General: comfortable and no acute distress HENMT: Face/Nose/Sinus: Normal nares present Eyes: General: appearance normal, both eyes and all related structures Neck: Neck: no JVD Resp: Auscultation: clear to auscultation bilaterally Cardio: Rate: regular rate Rhythm: regular rhythm GI: Inspection: non-distended GI Palp: Yes Soft to palpation Skin: General skin exam: normal color Neuro: Speech: normal speech Extrem: General: normal to inspection Psych: Mental Status: mental status grossly normal Assessment and Plan Assessment and plan (1) Colon polyp: Code(s): K63.5 - Polyp of colon Status: Acute Assessment and Plan: colonoscopy
--- NOTE | 2025-03-08 11:09 | S_PTH ---
PATIENT: Shimon Mederos V LOC: [facility] Salazar#:[id number] AGE/SX: 54/F ROOM: RE03/08/[address]: Quinten Mantilla MD : 1970 BED: DIS: 03/08/2025 SPEC #: [id number] RECD: 03/08/25 13:21 STATUS: DAQUAN RELindsay #: [id number] KENDY: 03/08/25 11:[address]: Quinten Mantilla DEPT: [facility] Surgical RECD BY: Shreya Denis ENTERED: 03/08/25 13:22 SP TYPE: Surgical OTHR DR: Lakisha BanksMD Tissues: A - Colon Polypectomy B - Colon Polypectomy Procedures: Hematoxylin and Eosin Stain Gross and Microscopic Level 4
[2025-03-08 11:12] VITALS: BP 115/93; PULSE 66; RESP 25; O2SAT 99
[2025-03-08 11:22] VITALS: BP 115/93; PULSE 62; RESP 27; O2SAT 100
[2025-03-08 11:32] VITALS: BP 135/73; PULSE 60; RESP 14; O2SAT 100
== END 2025-03-08 12:02 | disposition home or self-care (01) ==
PROVIDERS: PCP Family Medicine; Referring Provider Nurse Practitioner Family; Visit Provider Internal Medicine Gastroenterology
PROC: 0DJD8ZZ Inspection of Lower Intestinal Tract, Via Natural or Artificial Opening Endoscopic (ICD-10-PCS; CPT 45378; principal; 2025-03-08 11:30)
DX: Z12.11 Encounter for screening for malignant neoplasm of colon (principal); D12.3 Benign neoplasm of transverse colon; D12.2 Benign neoplasm of ascending colon
CPT/HCPCS: 45385; 88305; J2003; J2704; J7120

== ENCOUNTER 2025-04-02 00:32 | Day surgery (SDC) | payer BC, SELFPAY ==
[2025-03-30 08:31] VITALS: BMI 22.4
--- NOTE | 2025-03-30 08:37 | PC.NURSE ---
Report to the Outpatient Waiting Room, entrance under the green pavilion located off [facility], at time _11:30am on date ___04/02/25 ____. Planned Procedure Time: _12:30pm .? Time changes happen often and if your time is changed the preop area will call you the afternoon before. - You and your visitor will be asked to self-screen and do not enter if you have any COVID symptoms. Please call surgeon if you need to reschedule. - A mask is optional within the hospital at this time. Patients may have Light breakfast and liquids (water, carbonated beverages, clear teas, apple juice) until 2 hours prior to surgery with a maximum of 20 ounces. - No smoking, or chewing tobacco (or any form of nicotine). No chewing gum, candy or mints. Take only the following medications with a SIP of water on the morning of surgery: All meds ok DO NOT STOP ANY OF YOUR OTHER PRESCRIPTION MEDICATIONS PRIOR TO SURGERY EXCEPT THE FOLLOWING Hold all vitamins and supplements for 3 days per anesthesiologist. Medications to discontinue per physician NONE Date to take last dose NONE Please no make-up, nail venezuelan, hairspray, perfume, deodorant, or body powder the day of surgery.? No jewelry (including any body piercings) or valuables the day of surgery, leave them at home.? Please take a shower or bath the night before & the morning of, surgery with an antibacterial soap like Dial .? Wear comfortable, loose fitting clothing.? - Jewelry must be removed prior to entering the operating room.? Rings and piercings that are not removed may be cut off. - The hospital will not accept responsibility for valuables.? - Please leave all valuables, including medications, at home the day of surgery. If you are going home after surgery, a licensed diesel truck driver must drive you home.? - NO public transportation without another adult if you receive anesthesia. - We recommend that an adult stay with you for 24 hours following discharge. - We also recommend that you do not drive, make important decision, drink alcoholic beverages, or take any drugs that were not prescribed by your health care provider for at least 24 hours after your discharge time. Follow any additional instructions given to you from your surgeon. Telephone instructions given to ___Patient and asked if any additional questions and then verbalized understanding. Patient advised to call surgeon office or pre surgery nurse liaison [phone] if any additional questions.
--- NOTE | ~2025-04-02 | XR_ITS ---
XR fluoroscopy no charge Indication:steroid injection left sacroiliac joint TECHNIQUE: Fluoroscopy used during steroid injection left sacroiliac joint performed by [Fernando Mulligan MD] on 04/02/2025. 23 seconds with 4 fluoroscopic images captured. FINDINGS: Correlate with procedure note. IMPRESSION: Fluoroscopy used during steroid injection left sacroiliac joint. Reviewed, dictated and finalized at location O.
--- OUTSIDE RECORDS SUMMARY | 2025-04-02 00:35 | XMS_ITS | Clinical Summary ---
Author Organization [facility] [employer] Address [address] [place] [address] Care Team Providers Care Cigar Roller Name Role Phone Brendan Ortiz MD Primary Care Provider [phone] Source Comments [facility] [employer]non-owned Affiliates and Associated Physician Practices is amultiple site organization consisting of ambulatory clinics and hospital sitesin [place], [place], [place] and [place]. This disclosure is being madepursuant to the Care Everywhere program and may not contain all information available regarding this patient. Last updated 18.[facility] [employer] Allergies No known active allergies Medications * Be aware that medications may not be up to date on this document. Alwaysverify current medications with the patient. zolpidem (AMBIEN) 10 MG tablet Take 10 mg by mouth nightly as needed. Active Naproxen Sodium (ALEVE) 220 MG CAPS Take 2 Tabs by mouth 2 times daily. 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 Gender Identity Not on file Sexual Orientation Not on file Plan of Treatment Health Maintenance Due Date Last Done Comments COLOGUARD (AGES 45-75) - COL ON CA SCREENING 1970 COLON MONITORING 1969 COLONOSCOPY - COLON CA SCREENING 1969 CT COLONOGRAPHY - COLON CA SCREENING 1969 Colorectal Cancer Screening 1969 FIT - COLON CA SCREENING 1969 FLEX SIG - COLON CA SCREENING 1969 LIPID TESTING 1969 MAMMOGRAM 1969 HIV SCREENING 1984 HEPATITIS C SCREENING 07/02/1987 DTAP/TDAP/TD VACCINES (1 - Tdap) 1988 HEPATITIS B VACCINE (1 of 3 - 19+ 3-dose series) 1988 PAP SMEAR 1990 PNEUMOCOCCAL VACCINE 50+ (1 of 1 - PCV) 2019 ZOSTER VACCINE (1 of 2) 2019 COVID-19 VACCINE (1 - 2023-2 5 season) 2024 DEPRESSION SCREENING 08/09/2024 INFLUENZA VACCINE (#1) 2025 HIB VACCINE Aged Out No longer eligi ble based on patient's age to complete this topic HPV VACCINE Aged Out No longer eligi ble based on patient's age to complete this topic MENINGOCOCCAL (Group B) VACC INE SHARED DECISION-MAKING Aged Out No longer eligibl e based on patient's age to complete this topic MENINGOCOCCAL GROUPS A/C/Y/W VACCINE Aged Out No longer eligible b ased on patient's age to [place] [address] [facility] Address: [facility] [id number] [place] [address] SELF PAY NO INSURANCE Member Subscriber Plan / Payer (Ef fective for All Dates) Name:Shimon De Guzman V Member ID:Not on file Relation to Subscriber:Not on file Name:SHIMON DE GUZMAN Subscriber ID:Not on file (Home) Address: [address] [place], [place] [address] [address] Payer ID:Not on file Group ID:Not on file Type:Self Pay Address: [place], [place] [facility] Address: [facility] [address] [place] [address] Care Teams Cigar Roller Relationship Specialty Start Date End Date Brendan Ortiz MD [address] [place] [address] PCP - General 02/27/20
[2025-04-02 12:10] VITALS: BP 137/85; PULSE 61; RESP 16; TEMP 36.6; O2SAT 99; BMI 22.6
--- NOTE | 2025-04-02 12:18 | P.HP_ITS ---
History of Present Illness History of Present Illness Consent: Risks, benefits, and alternatives have been discussed and questions answered. Patient agrees to proceed with procedure. Chief complaint: sacroiliitis, chronic low back pain Narrative: Shimon Mederos is a 54 year old female with chronic, recalcitrant and disabling left lumbosacral back pain secondary to degenerative spondylosis, sacroiliac joint arthropathy and sacroiliitis with failure to respond to aggressive conservative measures including PT, oral and topical analgesics, opioid and nonopioid analgesics, rest, time and activity/behavioral modification over the past 1-2 years who presents for therapeutic intra-articular steroid injection of the left sacroiliac joint under fluoroscopic guidance and with contrast control. Review of Systems 2 Review of Systems: All systems reviewed & are unremarkable except as noted in HPI and below PMFSH Past Medical History Medical History (Updated 04/02/25 @ 12:21 by Fernando Mulligan MD) Colon polyp Colon cancer screening Back pain Dilated bile duct Pancreatic lesion Polyarthralgia Primary insomnia Post herpetic neuralgia Migraines Plantar fasciitis Hiatal hernia Anxiety Migraines Vaginal delivery x2 Surgical History Surgical History History of gastric surgery History of cholecystectomy Family History Family History Sibling Hypertension Father Family history of lung cancer Hypertension Mother Hypertension Family history of malignant melanoma Social History Social History Smoking status: Never smoker Second hand tobacco smoke exposure: No Alcohol intake: current Alcohol use details: Social Substance use: never Substance use type: does not use Do You Feel Safe in your Home?: Yes Lack of Transportation: No Lack of Food: Never True Current Housing: I Have Housing Concerned About Future Housing: No Difficulty Paying Gas/Electric Bills: No Difficulty Paying for Meds: No Currently Unemployed: No Education: Bachelor's Degree Living arrangements: with family Occupation/Education: other Additional occupation/education comments: Homemaker Gender identity (if verbalized by the patient): Female Spiritual care concerns: No Agree to blood products: Yes Meds Home Medications and Allergies Home Medications ?Medication ?Instructions ?Recorded ?Confirmed ?Type eszopiclone 3 mg tablet 3 mg PO HS 02/15/20 03/30/25 History trazodone 100 mg tablet 100 mg PO QHS PRN insomnia 0 12/26/20 03/30/25 History estradiol 0.1 mg/24 hr semiweekly See Rx Instructions .Route 09/14/23 03/30/25 Rx transdermal patch .COMPLEX #24 patches progesterone micronized 100 mg See Rx Instructions .Ro shana 09/14/23 03/30/25 Rx capsule .COMPLEX #90 caps syringe with needle 3 mL 25 gauge #5 ea 10/01/2302/27 Rx x 1 (BD Luer-Domi Syringe) rizatriptan 10 mg disintegrating 10 mg PO .COMPLEX PRN migraine 03/09/24 03/30/25 Rx tablet headache #30 tabs cyanocobalamin (vitamin B-12) 1,000 mcg IM MONTHLY #10 mL 03/28/24 03/30/25 Rx 1,000 mcg/mL injection solution lorazepam 0.5 mg tablet 0.5 mg PO .COMPLEX PRN Anxie ty #3 08/08/24 03/30/25 Rx tabs tramadol 50 mg tablet 50 mg PO Q8H PRN pain #21 ta bs 02/19/25 03/30/25 Rx pregabalin 200 mg capsule 200 mg PO TID #90 caps 02/2603/30/25 Rx Allergies Allergy/AdvReac Type Severity Reaction Status Date / Time cat dander Allergy Unknown Unknown Verified 03/30/25 08:29 pollen extracts Allergy Unknown Unknown Verified 03/30/25 08:29 NSAIDS (Non-Steroidal AdvReac Intermediate Unknown Verified 03/30/25 08:29 Anti-Inflamma Exam Narrative: The patient's physical exam is essentially unchanged from prior examination on 02/27/2025. Specifically, patient demonstrates normal lung capacity, tidal volume and respiratory rate without wheezes, crackles, rales or rubs. Heart rate and rhythm are regular without murmurs, gallops or rubs. No JVD. Pulses 2+ globally without increasing peripheral edema. AAOx3 with no evidence of confusion, intoxication or altered mental state, NC/AT without acute distress or altered consciousness. Speech, cognition, mood, insight and judgment at basel ine and within normal limits. Assessment and Plan Assessment and plan (1) Dorsalgia of lumbar region: Code(s): M54.50 - Low back pain, unspecified Status: Acute (2) Lumbosacral spondylosis: Code(s): M47.817 - Spondylosis without myelopathy or radiculopathy, lumbosacral region Status: Acute (3) Sacroiliitis: Code(s): M46.1 - Sacroiliitis, not elsewhere classified Status: Acute (4) Arthropathy of sacroiliac joint: Code(s): M47.818 - Spondylosis without myelopathy or radiculopathy, sacral and sacrococcygeal region Status: Acute Plan Proceed as planned with therapeutic intra-articular steroid injection of the left sacroiliac joint under fluoroscopic guidance and with contrast control.
--- NOTE | 2025-04-02 12:21 | P.OP_ITS ---
Procedure Note - Detailed Date of Procedure 04/02/25 Pre-op Diagnosis sacroiliitis, chronic low back pain Post-op Diagnosis Same Procedure Performed Left Sacroiliac Joint Steroid Injection under Fluoroscopic Guidance and with Contrast Control. Surgeon Fernando Mulligan MD Attending Urologist None Anesthesia Local Description of Procedure INFORMED CONSENT: Risks, benefits and alternatives to the procedure were discussed in detail with the patient who expressed explicit understanding and consent to proceed. Patient was informed verbally and in written form regarding the risks associated with the procedure including the low risk of serious infection, bleeding/bruising, allergic reaction, nerve or organ injury, paralysis, procedural site pain or discomfort, worsening pain and/or mobility, failure to treat and/or disfigurement. The patient expressed explicit understanding and consent to proceed. All materials required for the procedure were available prior to procedure start. Site and side were marked prior to procedure and confirmed in the presence of the patient. PROCEDURE IN DETAIL: The patient was brought to the procedural suite and placed in the prone position. Patient was made comfortable with use of pillows under the head/chest, hips and ankles. Skin overlying the injection site on the affected side(s) was prepared broadly with ChloraPrep applicator and draped in a sterile manner. Aseptic technique was used throughout. The left SI joint was identified in the AP view and contralateral oblique angulation with caudal tilt was utilized to optimize visualization of the inferior and medial joint line representing the posterior portion of the joint. Local anesthesia was established by infiltration with approximately 5 mL of 2% lidocaine via a 1-1/2 inch 27-gauge needle. A 22-gauge 3.5 inch Quincke spinal needle was advanced until the needle entered the inferior third of the joint space approximately 1cm cephalad from its most inferior point. In the AP view, 0.5 mL of Omnipaque 300 contrast medium was injected after negative aspiration for CSF, blood or other bodily fluid, showing appropriate intra-articular spread of contrast without evidence of intravascular, perineural or intrathecal placement. A 1.5 mL solution containing 10 mg of dexamethasone in 0.5% PF bupivacaine was injected after repeat negative aspiration. Appropriate spread of the injectate was confirmed with washout of previous injected contrast. No parasthesias were elicited. Needle was removed completely intact without difficulty. The same exact procedure was repeated for all remaining levels on the contralateral side, left SI joint, modified as necessary to accommodate for the new target location with identical findings/results and no evidence of complication. Images were saved and documented in the patient chart. Patient's skin was cleansed and sterile bandage applied. The patient tolerated the procedure well. The patient was transported to the recovery area in stable condition where they were observed for an appropriate amount of time prior to discharge, without evidence of complication. The patient was instructed to avoid excessive activity for the next 48 hours, including climbing and frequent use of stairs. Showers only for 48 hours. They were instructed not to drive or operate heavy machinery for 24 hours. They are to monitor for severe headaches, fevers, chills, night sweats, erythema/swelling at the site or any other signs of infection, bleeding/bruising, bowel or bladder changes as well as new pain, weakness or numbness in the upper or lower extremity. Should they notice these changes, they are instructed to call our office immediately or report directly to the nearest Emergency Department if no answer or if after posted office hours. COMPLICATIONS: None COMMENTS: None CONTRAST WASTED: 29.5mL Omnipaque 300. Complications No immediate complications Condition Stable Disposition Same day [facility] Billing Surgery - Charge Forward: Surgery Billing
--- NOTE | 2025-04-02 12:21 | WPDHPUPDATE1 ---
History and Physical Update Update Date/Time: 04/02/25 12:21 History and Physical has been reviewed, including an updated exam of the patient. There are NO changes in the patient's condition. Risks, benefits, and alternatives have been discussed and questions answered. Patient agrees to proceed with procedure.
[2025-04-02 12:30] VITALS: BP 168/97; PULSE 57; RESP 16; O2SAT 98
[2025-04-02] MEDS: dexAMETHasone SOD PHOS INJ 10 MG/ML 1 ML VIAL IM (12:30)
[2025-04-02 12:35] VITALS: BP 164/91; PULSE 63; RESP 16; O2SAT 98
[2025-04-02 12:39] VITALS: BP 143/71; PULSE 56; RESP 14; O2SAT 100
== END 2025-04-02 12:50 | disposition home or self-care (01) ==
PROVIDERS: PCP Family Medicine; Visit Provider Anesthesiology Pain Medicine
PROC: (CPT 64451; principal; 2025-04-02 12:30)
DX: M46.1 Sacroiliitis, not elsewhere classified (principal); M47.817 Spondylosis without myelopathy or radiculopathy, lumbosacral region; M47.818 Spondylosis without myelopathy or radiculopathy, sacral and sacrococcygeal region; G89.29 Other chronic pain; M54.50 Low back pain, unspecified; F51.01 Primary insomnia; F41.9 Anxiety disorder, unspecified; Z79.891 Long term (current) use of opiate analgesic; Z98.84 Bariatric surgery status; Z90.49 Acquired absence of other specified parts of digestive tract; Z86.0100 Personal history of colon polyps, unspecified; Z80.1 Family history of malignant neoplasm of trachea, bronchus and lung
CPT/HCPCS: 64451; 99199; J1100; Q9965